=== PATIENT | female | born 1935 | race Caucasian/White ===

== ENCOUNTER 2018-04-08 01:17 | Outpatient (CLI) | payer MEDICARE, MEDICAID, SELFPAY ==
--- NOTE | 2018-04-08 10:40 | DI.RAD_ITS ---
SYMPTOMS/DIAGNOSIS: RIGHT HIP PAIN, M25.551, H/O TRAUMATIC HIP FX, Z87.81 PELVIS AND RIGHT HIP: Comparison is made with intraoperative images dated August,. A compression screw is again noted in the proximal right femur for fracture fixation. There has been interval healing of the intertrochanteric fracture. A portion of the fracture remains visible.
== END 2018-04-08 01:37 ==
PROVIDERS: PCP Family Medicine; Visit Provider Nurse Practitioner Family
DX: M25.551 Pain in right hip (principal); Z87.81 Personal history of (healed) traumatic fracture
CPT/HCPCS: 73502

== ENCOUNTER → 2018-04-09 10:30 | Outpatient (BNVA) | payer MEDICARE, MEDICAID, SELFPAY | PROVIDERS: PCP Family Medicine; Referring Provider Family Medicine; Visit Provider Orthopaedic Surgery | DX: S72.141D Displaced intertrochanteric fracture of right femur, subsequent encounter for closed fracture with routine healing (principal); W19.XXXD Unspecified fall, subsequent encounter; M70.61 Trochanteric bursitis, right hip | CPT/HCPCS: 20610; 99211; 99213; J1040 ==

== ENCOUNTER → 2018-05-21 13:58 | Outpatient (BNVA) | payer MEDICARE, MEDICAID, SELFPAY | PROVIDERS: PCP Family Medicine; Referring Provider Family Medicine; Visit Provider Orthopaedic Surgery | DX: M70.61 Trochanteric bursitis, right hip (principal); M25.561 Pain in right knee; Z87.81 Personal history of (healed) traumatic fracture | CPT/HCPCS: 20610; 99211; 99213; J1040 ==

== ENCOUNTER → 2018-07-02 13:40 | Outpatient (BNVA) | payer MEDICARE, MEDICAID, SELFPAY | PROVIDERS: PCP Family Medicine; Referring Provider Family Medicine; Visit Provider Orthopaedic Surgery | DX: M70.61 Trochanteric bursitis, right hip (principal) | CPT/HCPCS: 99211; 99213 ==

== ENCOUNTER → 2018-08-18 10:43 | Outpatient (BNVA) | payer MEDICARE, MEDICAID, SELFPAY | PROVIDERS: PCP Family Medicine; Visit Provider Nurse Practitioner Family | DX: I44.2 Atrioventricular block, complete (principal); I10 Essential (primary) hypertension; E11.9 Type 2 diabetes mellitus without complications; Z79.84 Long term (current) use of oral hypoglycemic drugs; Z45.010 Encounter for checking and testing of cardiac pacemaker pulse generator [battery] | CPT/HCPCS: 93280; 99213 ==

== ENCOUNTER 2019-01-14 18:19 | Outpatient (REF) | payer MEDICARE, MEDICAID, SELFPAY ==
[2019-01-14 18:38] LABS: Anion Gap 13.3 mmol/L (3-11); BUN 17 mg/dL (7-18); CO2 22.7 mmol/L (21.0-32.0); CREATININE 0.86 mg/dL (0.55-1.02); Calcium 9.5 mg/dL (8.5-10.1); Chloride 99 mmol/L (98-107); Glucose 196 mg/dL (70-100); Potassium 4.4 mmol/L (3.5-5.1); Sodium 135 mmol/L (136-145)
== END 2019-01-14 18:39 ==
LOC: NCHCN 18:19
PROVIDERS: PCP Family Medicine; Visit Provider Nurse Practitioner Family
DX: E11.9 Type 2 diabetes mellitus without complications (principal)
CPT/HCPCS: 80048

== ENCOUNTER → 2019-02-16 11:38 | Outpatient (BNVA) | payer MEDICARE, MEDICAID, SELFPAY | PROVIDERS: PCP Family Medicine; Visit Provider Nurse Practitioner Family | DX: I44.2 Atrioventricular block, complete (principal); I10 Essential (primary) hypertension; Z45.018 Encounter for adjustment and management of other part of cardiac pacemaker; E11.9 Type 2 diabetes mellitus without complications; Z79.84 Long term (current) use of oral hypoglycemic drugs | CPT/HCPCS: 93288; 99213 ==

== ENCOUNTER → 2019-08-18 09:29 | Outpatient (BNVA) | payer MEDICARE, MEDICAID, SELFPAY | PROVIDERS: PCP Family Medicine; Referring Provider Family Medicine; Visit Provider Internal Medicine Cardiovascular Disease | DX: I44.2 Atrioventricular block, complete (principal); I10 Essential (primary) hypertension; E11.9 Type 2 diabetes mellitus without complications; Z45.018 Encounter for adjustment and management of other part of cardiac pacemaker | CPT/HCPCS: 93279; 93280; 99212; 99213 ==

== ENCOUNTER 2019-10-25 06:30 | Outpatient (REF) | payer MEDICARE, MEDICAID, SELFPAY ==
[2019-10-25 08:57] LABS: Hemoglobin A1C 7.3 % (3.8-5.6)
== END 2019-10-25 06:50 ==
LOC: NCHCN 06:30
PROVIDERS: PCP Family Medicine; Visit Provider Nurse Practitioner Family
DX: E11.9 Type 2 diabetes mellitus without complications (principal)
CPT/HCPCS: 83036

== ENCOUNTER 2020-07-24 20:35 | Outpatient (REF) | payer MEDICARE, MEDICAID, SELFPAY ==
[2020-07-24 12:20] LABS: ALT 23 U/L (14-59); AST 15 U/L (15-37); Albumin 3.5 g/dL (3.4-5.0); Alkaline Phosphatase 103 U/L (46-116); Anion Gap 7.2 mmol/L (3-11); BUN 19 mg/dL (7-18); Bilirubin, Total 0.3 mg/dL (0.2-1.0); CO2 27.8 mmol/L (21.0-32.0); CREATININE 0.8 mg/dL (0.55-1.02); Calcium 9.2 mg/dL (8.5-10.1); Chloride 102 mmol/L (98-107); Glucose 164 mg/dL (74-106); Potassium 4.8 mmol/L (3.5-5.1); Sodium 137 mmol/L (136-145); Total Protein 6.7 g/dL (6.4-8.2)
[2020-07-24 12:25] LABS: Hemoglobin A1C 7.4 % (<5.7)
== END 2020-07-24 20:36 | disposition home or self-care (01) ==
LOC: NCHCN 20:35
PROVIDERS: PCP Family Medicine; Visit Provider Nurse Practitioner Family
DX: E11.9 Type 2 diabetes mellitus without complications (principal); I10 Essential (primary) hypertension; F43.21 Adjustment disorder with depressed mood; Z95.0 Presence of cardiac pacemaker
CPT/HCPCS: 80053; 83036

== ENCOUNTER 2020-08-20 13:18 | Emergency (ER) | payer MEDICARE, MEDICAID, SELFPAY ==
[2020-08-20] VITALS (21 sets, daily range): BP systolic 105–154; BP diastolic 47–71; PULSE 92–102; RESP 14–20; TEMP 36.1; O2SAT 91–96
--- NOTE | 2020-08-20 13:30 | DI.RAD_ITS ---
EXAM: XR CHEST 1V IN DI DEPT CLINICAL HISTORY: fall TECHNIQUE: 2D digital imaging was performed. COMPARISON: CR CHEST 2 VIEWS PA,LAT from 08/19/2017 FINDINGS: MEDIASTINUM: Normal. HEART: Normal. Cardiac pacing wires are stable in position. PULMONARY VASCULATURE: There is fullness of the hilum bilaterally suspicious for pulmonary venous con gestion. This is most marked on the right. Adenopathy or mass cannot be entirely excluded. LUNGS: Clear. PLEURAL SPACE: No pleural effusion or pneumothorax. BONE:Within normal limits for the patient's age. OTHER FINDINGS:Normal. IMPRESSION: 1. Fullness of the flash bilaterally. This may represent pulmonary venous congestion. Adenopathy or mass cannot be entirely excluded. Please correlate clinically. 2. No focal consolidating infiltrates. DATA REPOSITORY: RADIATION DOSE DELIVERED:
--- NOTE | 2020-08-20 13:30 | RT.EKG_ITS ---
APPROVED REPORT Exam: Resting ECG Patient Location: E HR:96 bpm ECG Measurements Heart Rate 96 AXIS OK 212 P 95 QRSd 147 QRS 37 QT 397 T 229 QTc 501 Conclusion Sinus rhythm...normal P axis, V-rate 60- 99 Borderline prolonged OK interval...OK >207, V-rate 91-120 Left bundle branch block...QRSd>120, broad/notched R ST elevation secondary to IVCD...Multiple VCG criteria
--- NOTE | 2020-08-20 13:30 | DI.RAD_ITS ---
EXAM: XR HIP RT COMPLETE AP PELVIS and XR femur RT CLINICAL HISTORY: pain s/p fall. TECHNIQUE: 2D digital imaging was performed. COMPARISON: CR XR hip RT complete AP pelvis from 04/08/2018 FINDINGS: BONES: Acute fractures involving the right superior and inferior pubic rami. There is again seen a d ynamic compression screw transfixing the comminuted intertrochanteric fracture of the right femur. 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 The orthopedic hardware appears intact. No bony destructive lesion is seen. There is osteopenia. JOINTS: No dislocation present. SOFT TISSUE: Vascular calcifications are present. IMPRESSION: 1. Acute nondisplaced fractures of the right superior and inferior pubic rami. 2. Old right intertrochanteric femoral fracture with internal fixation and possible partial nonunion. DATA REPOSITORY: RADIATION DOSE DELIVERED:
--- NOTE | 2020-08-20 13:42 | ED.GENADUL_ITS ---
Discharge Plan Disposition Patient Disposition: OTHER Condition: Stable Discharge Details Clinical Impression: Fracture of ramus of right pubis Primary Care Provider: Sia Sousa ED Provider: Marvin Singer Home Meds and New Rx's Prescriptions: New tramadol 50 mg tablet 50 mg PO TID PRNQty: 14 RF: 0 Continued Tradjenta 5 mg tablet 5 mg PO QAM RF: 0 lisinopril 40 MG tablet 40 mg PO DAILY RF: 0 polyethylene glycol 3350 17 GM powder in packet 17 gm PO DAILY PRN PRN (Reason: Constipation) RF: 0 magnesium oxide 400 MG tablet 400 mg PO BID RF: 0 diazepam 2 MG tablet 2 mg PO TID PRN PRNQty: 12 RF: 0 pantoprazole 40 MG tablet,delayed release (DR/EC) 40 mg PO DAILY RF: 0 ibuprofen 400 MG tablet 400 - 800 mg PO Q6H PRN PRNRF: 0 acetaminophen [Tylenol] 325 MG tablet 650 tab PO Q6H PRN PRNQty: 0 RF: 0 aspirin [Lo-Dose Aspirin] 81 MG tablet,delayed release (DR/EC) 81 mg PO BID Qty: 0 RF: 0 spironolactone 25 MG tablet 12.5 mg PO DAILY RF: 0 glimepiride [Amaryl] 4 MG tablet 4 mg PO DAILY RF: 0 metformin 500 MG tablet 500 mg PO BID RF: 0 sertraline 100 mg tablet 100 mg PO DAILY RF: 0 Lantus Solostar U-100 Insulin 100 unit/mL (3 mL) insulin pen 15 unit SUBCUT HS RF: 0 Discharge Instructions Additional Instructions: you have a small broken bone in the pelvis that doesn't require any operations take tylenol 1000mg every 6 hours as needed and if you need additional pain med icine take 1 tramadol follow up with your primary care provider within 1 week if severe worsening pain, or new pain such as abdominal pain return to the emergency department Medical Decision Making 84 yo female with hx of dm, htn, who had a right hip fracture previously in the past comes in from hospital for special care with right hip pain. She states that yesterday evening she was using her walker and it got caught and she fell onto the right hip. Denies hitting head or loc. She states she was able to use her walker after this but states unable to use her walker due to right hip pain today. She arrives hemodynamically stable. Denies head pain and has no neck tenderness, no abdominal tenderness or chest tenderness. She has pain over right lateral hip, no rotation on exam and no distal pain. She is unable to move the right leg due to pain in the right hip, no erythema or warmth. No pain in the knee. Suspect contusion vs fracture, will obtain xrays and reassess. labs show no significant acute findings, xrays show nondisplaced fractures of right superior and inferior pubic rami, nonsurgical per Dr. Mccauley. Discussed with annie suarez treatment plan of prn analgesia and weight bearing as tolerated and they feel they can provide this for her and are agreeable to take her back. Pt updated and in agreement with plan. Cxr read as mild congestion but has no signs on exam to suggest clinical failure at this time and has clear lungs and no hypoxia, no dyspnea or chest pain so do not feel treatment for this indicated Differential Diagnosis Differential Diagnosis: bursitis, contusion, fracture Medical Records Medical records reviewed: Yes I reviewed the patient's medical records. Imaging Data Radiologic Study: Attestation: I personally reviewed and interpreted this imaging study as follows: Imaging: X-Ray Radiologist's impression: IMPRESSION: Mild vascular congestion on chest xray Radiologic Study #2: Attestation: I personally reviewed and interpreted this imaging study as follows: Imaging: X-Ray Radiologist's impression: IMPRESSION: 1. Nondisplaced acute appearing fractures of the right superior and inferior pubic rami. 2. 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 Radiologic Study #3: Attestation: I personally reviewed and interpreted this imaging study as follows: Imaging: X-Ray Radiologist's impression: IMPRESSION: 1. Nondisplaced acute appearing fractures of the right superior and inferior pubic rami. 2. 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 ECG Data Attestation: I personally reviewed and interpreted this ECG (s) as follows: Prior ECG tracings: available for review Interpretation: sinus rhythm, rate of 96, pr 212, left bundle branch block, no acute changes compared to prior ekg HPI General Mode of arrival: EMS . Date/Time Provider Initiated Documentation: 08/20/20 13:31 . Limitations to Documentation: no limitations . Information obtained by: patient . History of Present Illness 84 year old F presents to the emergency department with the chief complaint of right hip pain, described as moderate, Patient reports no radiation. Patient started experiencing this day(s) (1) and it has been constant. Movement worsens symptoms . Patient notes no other symptoms.. Patient did receive the following treatments prior to arrival, none Related Data Home Medications Medication Instructions Recorded Confirmed lisinopril 40 mg PO DAILY 03/04/16 08/20/20 glimepiride [Amaryl] 4 mg PO DAILY 08/12/16 08/20/20 spironolactone 12.5 mg PO DAILY 08/12/16 08/20/20 metformin 500 mg PO BID 07/10/17 08/20/20 acetaminophen [Tylenol] 650 tab PO Q6H PRN PRN #0 08/22/17 08/20/20 aspirin [Lo-Dose Aspirin] 81 mg PO BID #0 08/22/17 08/20/20 diazepam 2 mg PO TID PRN PRN #12 tab 08/22/17 08/20/20 ibuprofen 400 - 800 mg PO Q6H PRN PRN tab 08/22/17 08/20/20 magnesium oxide 400 mg PO BID tab 08/22/17 08/20/20 pantoprazole 40 mg PO DAILY tabcr 08/22/17 08/20/20 polyethylene glycol 3350 17 gm PO DAILY PRN PRN packet 08/22/17 08/20/20 linagliptin 5 mg tablet 5 mg PO QAM 02/16/19 08/20/20 Lantus Solostar U-100 Insulin 15 unit SUBCUT HS 08/20/20 08/20/20 sertraline 100 mg PO DAILY 08/20/20 08/20/20 tramadol 50 mg PO TID PRN #14 tab 08/20/20 Previous Rx's Medication Instructions Recorded acetaminophen [Tylenol] 650 tab PO Q6H PRN PRN #0 08/22/17 aspirin [Lo-Dose Aspirin] 81 mg PO BID #0 08/22/17 diazepam 2 mg PO TID PRN PRN #12 tab 08/22/17 ibuprofen 400 - 800 mg PO Q6H PRN PRN tab 08/22/17 magnesium oxide 400 mg PO BID tab 08/22/17 pantoprazole 40 mg PO DAILY tabcr 08/22/17 polyethylene glycol 3350 17 gm PO DAILY PRN PRN packet 08/22/17 tramadol 50 mg PO TID PRN #14 tab 08/20/20 Allergies Allergy/AdvReac Type Severity Reaction Status Date / Time chlorpheniramine polistirex Allergy Unverified 08/20/20 13:32 [From Tussionex] codeine Allergy Unverified 08/20/20 13:32 hydrocodone polistirex Allergy Unverified 08/20/20 13:32 [From Tussionex] meperidine HCl [From Demerol] Allergy Unverified 08/20/20 13:32 Penicillins Allergy Unverified 08/20/20 13:32 scallops Allergy Unverified 08/20/20 13:32 shellfish derived Allergy Unverified 08/20/20 13:32 Sulfa (Sulfonamide Allergy Unverified 08/20/20 13:32 Antibiotics) General Stated Complaint: Orthopedic ALCIDES: 3 Review of Systems All systems reviewed & are unremarkable except as noted in HPI and below Constitutional Constitutional: Denies chills, Denies fever(s) and Denies weakness Cardiovascular Cardiovascular: Denies chest pain and Denies dyspnea Respiratory Respiratory: Denies cough and Denies dyspnea Gastrointestinal Gastrointestinal: Denies abdominal pain, Denies nausea and Denies vomiting Musculoskeletal Musculoskeletal: Denies joint swelling Neurologic Neurologic: Denies weakness Psychiatric Psychiatric: Denies depression [facility] Medical History (Updated 08/20/20 @ 15:21 by Marvin Singer MD) Complete heart block Diabetes mellitus Hypertension Surgical History (Updated 09/02/17 @ 08:26 by Vaishali Collins) OPEN REDUCTION AND INTERNAL FIXATION WITH COMPRESSION HIP SCREW (08/19/17) DR. GARCIA Social History Smoking/Tobacco Use Status: Former Tobacco Use Smoking risk assessment performed?: Yes Alcohol Intake: never Drug use: Never Do you feel safe in your relationship?: Yes Exam Const General: no acute distress Orientation: alert HENMT Head: normal to inspection Ears: external ears normal General nose exam: external nose normal Mouth: moist mucous membranes Eyes General: appearance normal, both eyes and all related structures Neck Neck: normal visual inspection Resp Effort & Inspection: normal respiratory effort and able to speak in complete sentences Cardio Rate: regular rate Skin General skin exam: no rashes or lesions noted Neuro General: patient alert Extrem General: normal to inspection Course Vital Signs Vital signs: Vital Signs Temperature 36.1 C L 08/20/20 13:27 Pulse 100 H 08/20/20 13:27 Respiratory Rate 20 08/20/20 13:27 Blood Pressure 154/61 H 08/20/20 13:27 Pulse Oximetry 92 08/20/20 13:27 Temperature 36.1 C L 08/20/20 13:27 Temperature Source Temporal Artery Scan 08/20/20 13:27 Pulse 100 H 08/20/20 13:27 Respiratory Rate 20 08/20/20 13:27 Respiratory Effort Non-Labored 08/20/20 13:30 Blood Pressure 154/61 H 08/20/20 13:27 Blood Pressure Position Supine 08/20/20 13:27 Pulse Oximetry 92 08/20/20 13:27 Oxygen Delivery Method Room Air 08/20/20 13:27 Oxygen Flow Rate 0 08/20/20 13:27 Pain Level 10 08/20/20 13:27
[2020-08-20] MEDS: Acetaminophen 500 MG TAB 1000 MG PO (13:50)
[2020-08-20 13:58] LABS: Abs Immature Grans 0.05 10^3/uL (0.0-0.06); Absolute Basophil Count 0.06 10^3/uL (0.0-0.2); Absolute Eosinophil Count 0.13 10^3/uL (0.0-0.7); Absolute Lymphocyte Count 1.62 10^3/uL (1.2-3.4); Absolute Monocyte Count 0.58 10^3/uL (0.1-0.8); Basophils % 0.6; Eosinophils % 1.3; HCT 38.6 % (36.0-46.0); HGB 12.7 g/dL (11.2-15.7); Immature Grans % 0.5; Lymphocytes % 16.3; MCH 28.9 pg (27.0-33.0); MCHC 32.9 % (32.0-36.0); MCV 87.9 fL (80-95); MPV 8.8 fL (8.0-11.0); Monocytes % 5.8; Neutrophils % 75.5; Nucleated RBC 0 %; Platelet Count 277 10^3/uL (130-400); RBC 4.39 10^6/uL (3.93-5.22); RDW 13.6 % (11.7-14.6); RDW-SD 43.9 fL; WBC 9.94 10^3/uL (4.4-10.8)
[2020-08-20 14:13] LABS: INR 1.1 (0.9-1.1); PTT Activated 24.8 sec (21.0-27.5)
[2020-08-20 14:21] LABS: ALT 39 U/L (14-59); AST 30 U/L (15-37); Albumin 3.7 g/dL (3.4-5.0); Alkaline Phosphatase 102 U/L (46-116); Anion Gap 13.1 mmol/L (3-11); BUN 24 mg/dL (7-18); Bilirubin, Total 0.6 mg/dL (0.2-1.0); CO2 22.9 mmol/L (21.0-32.0); CREATININE 1.2 mg/dL (0.55-1.02); Calcium 9.3 mg/dL (8.5-10.1); Chloride 100 mmol/L (98-107); Glucose 229 mg/dL (74-106); Potassium 4.2 mmol/L (3.5-5.1); Sodium 136 mmol/L (136-145); Total Protein 7.4 g/dL (6.4-8.2)
[2020-08-20 14:31] LABS: Troponin I < 0.05 ng/mL (<0.06)
--- NOTE | 2020-08-20 14:38 | DI.VRAD_ITS ---
PROCEDURE INFORMATION: Exam: XR Chest Exam date and time: 08/20/2020 2:28 PM Age: 84 years old Clinical indication: Chest pain; Patient HX: Fall TECHNIQUE: Imaging protocol: XR of the chest Views: 1 view. COMPARISON: CR CHEST 2 VIEWS PA,LAT 08/19/2017 9:06 AM FINDINGS: Tubes, catheters and devices: Pacemaker. Lungs: Mild vascular congestion. No consolidation. Pleural spaces: Unremarkable. No pleural effusion. No pneumothorax. Heart/Mediastinum: Normal Vasculature: Aortic calcifications. Bones/joints: Degenerate arthritis spine and shoulders. IMPRESSION: Mild vascular congestion Dictated and Authenticated by: Christina Zavala MD. Ordering:JAROD Wong MD
--- NOTE | 2020-08-20 14:42 | DI.VRAD_ITS ---
PROCEDURE INFORMATION: Exam: XR Right Hip with Pelvis when Performed Exam date and time: 08/20/2020 2:29 PM Age: 84 years old Clinical indication: Injury or trauma; Fall; Fracture of pelvis \T\ hip; Right; Traumatic fracture; Articular head of femur; Closed fracture TECHNIQUE: Imaging protocol: XR Right hip with pelvis when performed. Views: 2 or 3 views. COMPARISON: CR XR hip RT complete AP pelvis 04/08/2018 10:28 AM FINDINGS: Bones/joints: Nondisplaced acute appearing fractures of the right superior and inferior pubic rami. Internal fixation proximal right femur across the trochanteric fracture. Fracture line remains visible and has appearance more suggestive of a chronic nonunion or partial nonunion rather than an acute fracture. The bones are demineralized and there is degenerative arthritis in the visualized lower lumbar spine. Degenerative narrowing of both hip joints, worse on the right. Subcutaneous edema over the lateral aspect of the right hip. Soft tissues: Unremarkable. Vasculature: Vascular calcifications. IMPRESSION: 1. Nondisplaced acute appearing fractures of the right superior and inferior pubic rami. 2. 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 Dictated and Authenticated by: Christina Zavala MD. Ordering:JAROD Wong MD
--- NOTE | 2020-08-20 14:43 | DI.VRAD_ITS ---
PROCEDURE INFORMATION: Exam: XR Right Femur Exam date and time: 08/20/2020 2:28 PM Age: 84 years old Clinical indication: Injury or trauma; Fall; Fracture, traumatic; Closed fracture; Hip; Right; Prior surgery TECHNIQUE: Imaging protocol: XR Right femur. Views: 2 views. COMPARISON: No relevant prior studies available. FINDINGS: Bones/joints: Nondisplaced acute appearing fractures of the right superior and inferior pubic rami. Internal fixation proximal right femur across the trochanteric fracture. Fracture line remains visible and has appearance more suggestive of a chronic nonunion or partial nonunion rather than an acute fracture. Degenerative arthritis right hip with diffuse joint space narrowing. Degenerate arthritis right knee. The bones are demineralized. Soft tissues: Mild soft tissue edema lateral to the right hip. Vasculature: Vascular calcifications. IMPRESSION: 1. Nondisplaced acute appearing fractures of the right superior and inferior pubic rami. 2. 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 Dictated and Authenticated by: Christina Zavala MD. Ordering:JAROD Wong MD
== END 2020-08-20 15:48 | disposition other institution (70) ==
LOC: ER 15:22
PROVIDERS: Emergency Provider Emergency Medicine; PCP Nurse Practitioner Family
DX: S32.591A Other specified fracture of right pubis, initial encounter for closed fracture (principal); S32.511A Fracture of superior rim of right pubis, initial encounter for closed fracture; W18.09XA Striking against other object with subsequent fall, initial encounter
CPT/HCPCS: 36415; 73552; 80053; 86850; 86900; 86901; 93005; 99285; 71045; 73502; 84484; 85025; 85610; 85730; 93010

== ENCOUNTER 2020-08-23 11:44 | Inpatient (IN) | payer MEDICARE, MEDICAID, SELFPAY ==
[2020-08-23] VITALS (12 sets, daily range): BP systolic 114–162; BP diastolic 62–88; PULSE 74–107; RESP 16–18; TEMP 36.6–36.7; O2SAT 92–97
--- NOTE | 2020-08-23 11:39 | W.ED.GENAD ---
Discharge Plan Disposition Patient Disposition: [facility] INPATIENT Condition: Stable Discharge Details Clinical Impression: Intractable pain, Fracture of superior pubic ramus, Fracture of inferior pubic ramus, Ambulatory dysfunction Admit Date/Time: 08/23/20 12:31 Admit Provider: Juan Bro Attending Provider: Juan Bro Primary Care Provider: Criss Clay ED Provider: Ingrid Sun Discharge Data Discharge Date/Time-TO BE ENTERED AT DEPARTURE: 08/23/20 13:52 Medical Decision Making 84-year-old female with a history of complete heart block, hypertension, diabetes history of previous right hip fracture and diagnosed 3 days ago with right superior inferior pubic ramus fracture status post fall presents from [facility] for intractable pain and inability to ambulate for admission for pain control. Report per EMS was that it was attempted for patient to be directly admitted but they were unable to do so. Patient denies any new falls. She is afebrile and appears nontoxic. Unclear if patient has any history of dementia or is hard of hearing but has delayed answers. She is oriented to person and place but not time. She has pain in her right hip with any movement. She has neurovascular intact. We will place an IV, check screening labs and urinalysis and give a dose of morphine for pain control. Labs reviewed. Normal white blood cell count. Glucose 236. Bicarb 23. Urinalysis notes 3-5 WBCs but negative nitrite. Rapid Covid negative. Case discussed with hospitalist who accepts patient for admission for pain control, PT evaluation and if needed transfer to rehab for pain management and PT. Medical Records Medical records reviewed: Yes I reviewed the patient's medical records. Lab Data Lab results reviewed: Yes I reviewed the patient's lab results. Labs: 08/23/20 12:20 Urine - Reflex from Ua Urine Culture - Pending Laboratory Tests Range/Units 08/23/20 08/23/20 08/23/20 11:58 11:58 12:20 WBC (4.4-10.8) 10^3/uL 9.24 RBC (3.93-5.22) 10^6/uL 4.15 Hgb (11.2-15.7) g/dL 11.7 Hct (36.0-46.0) % 36.1 MCV (80-95) fL 87.0 MCH (27.0-33.0) pg 28.2 MCHC (32.0-36.0) % 32.4 RDW (11.7-14.6) % 13.5 Plt Count (130-400) 10^3/uL 255 MPV (8.0-11.0) fL 8.9 Immature Gran % 0.5 Neutrophils % 72.0 Lymphocytes % 18.2 Monocytes % 7.1 Eosinophils % 1.8 Basophils % 0.4 Nucleated RBC % % 0 Absolute Neutrophils (1.2-6.7) 10^3/uL 6.64 Absolute Lymphocytes (1.2-3.4) 10^3/uL 1.68 Absolute Monocytes (0.1-0.8) 10^3/uL 0.66 Absolute Eosinophils (0.0-0.7) 10^3/uL 0.17 Absolute Basophils (0.0-0.2) 10^3/uL 0.04 Sodium (136-145) mmol/L 134 L Potassium (3.5-5.1) mmol/L 4.3 Chloride (98-107) mmol/L 97 L Carbon Dioxide (21.0-32.0) mmol/L 23.4 Anion Gap (3-11) mmol/L 13.6 H BUN (7-18) mg/dL 32 H Creatinine (0.55-1.02) mg/dL 1.1 H Estimated GFR/1.73 m2 (mL/min/1.73m2) 47.32 Glucose (74-106) mg/dL 236 H Calcium (8.5-10.1) mg/dL 9.2 Total Bilirubin (0.2-1.0) mg/dL 0.7 AST (15-37) U/L 26 ALT (14-59) U/L 27 Alkaline Phosphatase (46-116) U/L 90 Total Protein (6.4-8.2) g/dL 7.4 Albumin (3.4-5.0) g/dL 3.4 Urine Color (Yellow) Yellow Urine Clarity (Clear) Sl cloudy Urine pH (5-8) 5.5 Ur Specific [place] (1.005-1.025) 1.025 Urine Protein (Negative) mg/dL 30 H Urine Ketones (Negative) mg/dL 40 H Urine Blood (Negative) Small H Urine Nitrite (Negative) Negative Urine Bilirubin (Negative) Negative Urine Urobilinogen (Up TO 0.2) EU/dL 0.2 Ur Leukocyte Esterase (Negative) Trace H Urine RBC (0-2) HPF 5-10 H Urine WBC (0-5) HPF 3-5 Ur Epithelial Cells (Negative) HPF Rare Urine Crystals (Negative) HPF Negative Urine Bacteria (Negative) HPF Many Urine Casts (Negative) LPF Negative Urine Mucus (Negative) Negative Ur Culture Indicated? Yes Urine Glucose (Negative) mg/dL 500 H HPI General Mode of arrival: EMS. Date/Time Provider Initiated Documentation: 08/23/20 11:56. Limitations to Documentation: no limitations. Information obtained by: patient. HPI Narrative: Patient is an 84-year-old female with a history of hypertension, cataracts, diabetes and previous right hip fracture diagnosed with right superior and inferior pubic ramus fractures 3 days ago status post fall at [facility]. Patient was seen in the ED at that time and discharged home with tramadol. EMS called to [facility] today as patient's pain is uncontrolled and she is unable to ambulate. Review of records from ED notes a few days ago note that [facility] thought they could manage her weightbearing as tolerated and pain control at that time but she has been unable to manage there. Patient states the tramadol is not helping for her pain. She states she has been unable to ambulate due to the pain. She denies any new falls. She denies any fever, vomiting. Related Data Home Medications Medication Instructions Recorded Confirmed lisinopril 40 mg PO HS 03/04/16 08/23/20 glimepiride [Amaryl] 4 mg PO DAILY 08/12/16 08/23/20 spironolactone 12.5 mg PO DAILY 08/12/16 08/23/20 metformin 500 mg PO BID 07/10/17 08/23/20 acetaminophen [Tylenol] 650 tab PO Q6H PRN PRN #0 08/22/17 08/23/20 aspirin [Lo-Dose Aspirin] 81 mg PO BID #0 08/22/17 08/23/20 diazepam 2 mg PO TID PRN PRN #12 tab 08/22/17 08/23/20 ibuprofen 400 - 800 mg PO Q6H PRN PRN tab 08/22/17 08/23/20 magnesium oxide 400 mg PO BID tab 08/22/17 08/23/20 pantoprazole 40 mg PO DAILY tabcr 08/22/17 08/23/20 polyethylene glycol 3350 17 gm PO DAILY PRN PRN packet 08/22/17 08/23/20 linagliptin 5 mg tablet 5 mg PO QAM 02/16/19 08/23/20 Lantus Solostar U-100 Insulin 15 unit SUBCUT HS 08/20/20 08/23/20 oxycodone 5 mg PO Q6H 08/23/20 08/23/20 Previous Rx's Medication Instructions Recorded acetaminophen [Tylenol] 650 tab PO Q6H PRN PRN #0 08/22/17 aspirin [Lo-Dose Aspirin] 81 mg PO BID #0 08/22/17 diazepam 2 mg PO TID PRN PRN #12 tab 08/22/17 ibuprofen 400 - 800 mg PO Q6H PRN PRN tab 08/22/17 magnesium oxide 400 mg PO BID tab 08/22/17 pantoprazole 40 mg PO DAILY tabcr 08/22/17 polyethylene glycol 3350 17 gm PO DAILY PRN PRN packet 08/22/17 Allergies Allergy/AdvReac Type Severity Reaction Status Date / Time chlorpheniramine polistirex Allergy Unverified 08/23/20 12:45 [From Tussionex] codeine Allergy Unverified 08/23/20 12:45 hydrocodone polistirex Allergy Unverified 08/23/20 12:45 [From Tussionex] meperidine HCl [From Demerol] Allergy Unverified 08/23/20 12:45 Penicillins Allergy Unverified 08/23/20 12:45 scallops Allergy Unverified 08/23/20 12:45 shellfish derived Allergy Unverified 08/23/20 12:45 Sulfa (Sulfonamide Allergy Unverified 08/23/20 12:45 Antibiotics) General Stated Complaint: Orthopedic ALCIDES: 3 Review of Systems All systems reviewed & are unremarkable except as noted in HPI and below Constitutional Constitutional: Reports as per HPI, Denies chills and Denies fever(s) Eyes Eyes: Denies blurry vision ENT Ears, Nose, Mouth, and Throat: Denies dizziness, Denies sore throat and Denies throat swelling Cardiovascular Cardiovascular: Denies chest pain and Denies dyspnea Respiratory Respiratory: Denies cough and Denies dyspnea Gastrointestinal Gastrointestinal: Denies abdominal pain, Denies diarrhea and Denies vomiting Genitourinary Genitourinary: Denies hematuria and Denies dysuria Musculoskeletal Musculoskeletal: Denies back pain and Denies numbness Comments: Right hip pain Integumentary/Breasts Skin/Breast: Denies lesions and Denies rash Neurologic Neurologic: Denies dizziness, Denies localized weakness and Denies numbness Allergic/Immunologic Allergic/Immunologic: Denies throat swelling [facility] Medical History (Updated 08/24/20 @ 08:14 by Ingrid Sun DO) Complete heart block Diabetes mellitus Hypertension Surgical History (Updated 09/02/17 @ 08:26 by Vaishali Collins) OPEN REDUCTION AND INTERNAL FIXATION WITH COMPRESSION HIP SCREW (08/19/17) DR. GARCIA Social History Smoking/Tobacco Use Status: Former Tobacco Use Smoking risk assessment performed?: Yes Alcohol Intake: never Drug use: Never Exam Const General: cooperative and no acute distress HENMT Head: normal to inspection Face and sinus: normal facial exam Eyes General: appearance normal, both eyes and all related structures EOM: EOM intact bilaterally Neck Neck: normal visual inspection and No submandibular swelling Lymphatic: no lymphadenopathy noted Chest Chest: normal inspection of the chest and no tenderness Resp Effort & Inspection: normal respiratory effort and able to speak in complete sentences Auscultation: clear to auscultation bilaterally Cardio Rate: regular rate Rhythm: regular rhythm GI Inspection: normal to inspection Palpation: soft, not firm, not rigid and nontender Auscultation: normal bowel sounds Back/Spine/Pelvis Thoracic/Lumbar Spine: thoracic and lumbar spine normal to inspection Other: Pain in right hip with range of motion. Tenderness to palpation to right lateral hip. Skin General skin exam: no rashes or lesions noted Neuro General: patient alert, patient awake and patient oriented x3 Cognition: normal cognition Speech: speech normal Motor: muscle tone normal throughout Sensory Exam: no sensory deficits noted Extrem General: normal to inspection, capillary refill normal, no calf tenderness bilaterally and no edema Other: Tenderness palpation to right lateral hip. Pain in right hip with range of motion. Right DP/PT pulses intact. Psych Appearance: grossly normal Mental Status: mental status grossly normal Speech and Movement: speech and movement normal Affect: normal affect Course Vital Signs Vital signs: Vital Signs Temperature 97.9 F 08/23/20 11:37 Pulse 107 H 08/23/20 11:37 Respiratory Rate 18 08/23/20 11:37 Blood Pressure 136/85 08/23/20 11:37 Pulse Oximetry 97 08/23/20 11:37 Temperature 97.9 F 08/23/20 11:37 Temperature Source Skin 08/23/20 11:37 Pulse 107 H 08/23/20 11:37 Respiratory Rate 18 08/23/20 11:37 Blood Pressure 136/85 08/23/20 11:37 Blood Pressure Position Supine 08/23/20 11:37 Pulse Oximetry 97 08/23/20 11:37 Oxygen Delivery Method Room Air 08/23/20 11:37 Oxygen Flow Rate 0 08/23/20 11:37 Pain Level 10 08/23/20 11:37
[2020-08-23 12:19] LABS: Abs Immature Grans 0.05 10^3/uL (0.0-0.06); Absolute Basophil Count 0.04 10^3/uL (0.0-0.2); Absolute Eosinophil Count 0.17 10^3/uL (0.0-0.7); Absolute Lymphocyte Count 1.68 10^3/uL (1.2-3.4); Absolute Monocyte Count 0.66 10^3/uL (0.1-0.8); Absolute Neutrophil Count 6.64 10^3/uL (1.2-6.7); Basophils % 0.4; Eosinophils % 1.8; HCT 36.1 % (36.0-46.0); HGB 11.7 g/dL (11.2-15.7); Immature Grans % 0.5; Lymphocytes % 18.2; MCH 28.2 pg (27.0-33.0); MCHC 32.4 % (32.0-36.0); MPV 8.9 fL (8.0-11.0); Monocytes % 7.1; Nucleated RBC 0 %; Platelet Count 255 10^3/uL (130-400); RBC 4.15 10^6/uL (3.93-5.22); RDW 13.5 % (11.7-14.6); RDW-SD 43.6 fL; WBC 9.24 10^3/uL (4.4-10.8)
[2020-08-23 12:25] LABS: Bilirubin Negative (Negative); Blood Small (Negative); Clarity Sl Cloudy (Clear); Glucose 500 mg/dL (Negative); Ketones 40 mg/dL (Negative); Leukocyte Esterase Trace (Negative); Nitrite Negative (Negative); Specific Gravity 1.025 (1.005-1.025); Urobilinogen 0.2 EU/dL (Up TO 0.2); pH 5.5 (5-8)
[2020-08-23 12:32] LABS: ALT 27 U/L (14-59); AST 26 U/L (15-37); Albumin 3.4 g/dL (3.4-5.0); Alkaline Phosphatase 90 U/L (46-116); Anion Gap 13.6 mmol/L (3-11); BUN 32 mg/dL (7-18); Bilirubin, Total 0.7 mg/dL (0.2-1.0); CO2 23.4 mmol/L (21.0-32.0); CREATININE 1.1 mg/dL (0.55-1.02); Calcium 9.2 mg/dL (8.5-10.1); Chloride 97 mmol/L (98-107); Estimated GFR 47.32 (mL/min/1.73m2); Glucose 236 mg/dL (74-106); Potassium 4.3 mmol/L (3.5-5.1); Sodium 134 mmol/L (136-145); Total Protein 7.4 g/dL (6.4-8.2)
[2020-08-23 12:32] LABS: Epithelial Cells Rare HPF (Negative)
[2020-08-23 12:33] LABS: Bacteria Many HPF (Negative); C & S Indicated? Yes; Casts Negative LPF (Negative); Crystals Negative HPF (Negative); Mucus Negative (Negative)
--- NOTE | 2020-08-23 12:34 | W.PM.HP.N ---
Date of service: 08/23/20 Time of Service: 12:34 Assessment and Plan Assessment and plan (1) Fracture of ramus of right pubis: Status: Acute Assessment and plan: seen by orthopedics on Friday. non surgical weight bear as tolerated pain management/bowel management PT/OT consult walker at all times for gait safety and stability (2) Diabetes mellitus type 2 in obese: Status: Acute Assessment and plan: diabetic diet sliding scale ac/hs continue home medication, trajenta not available A1C 7.4 in jul 2020 (3) DVT prophylaxis: Status: Acute Assessment and plan: enoxaparin daily (4) Discharge planning issues: Status: Acute Assessment and plan: case management following anticipate swing level needs to safely reambulate. discussed with Dr Bro History of Present Illness History of Present Illness Chief Complaint: right hip pain Narrative: patient returns to the ED after a mechanical fall on 08/20/20 where she was evaluated in ED and labs show no significant acute findings, xrays show nondisplaced fractures of right superior and inferior pubic rami, seen and noted to be nonsurgical per Dr. Mccauley. She was discharged back with orders to ambulation with assist and walker, pain management and has failed to manage pain and ambulation so returns to the ED. Review of Systems Constitutional Constitutional: Denies fever(s) Musculoskeletal Musculoskeletal: Reports arthralgias (right hip) Integumentary/Breasts Skin/Breast: Denies lesions and Denies rash [facility] Medical History (Updated 08/24/20 @ 08:59 by Janice Castillo NP) Complete heart block Diabetes mellitus Hypertension Surgical History (Updated 09/02/17 @ 08:26 by Vaishali Collins) OPEN REDUCTION AND INTERNAL FIXATION WITH COMPRESSION HIP SCREW (08/19/17) DR. GARCIA Social History Smoking/Tobacco Use Status: Former Tobacco Use Smoking risk assessment performed?: Yes Alcohol Intake: never Drug use: Never Meds Home Medications and Allergies Allergies Allergy/AdvReac Type Severity Reaction Status Date / Time chlorpheniramine polistirex Allergy Unverified 08/23/20 12:45 [From Tussionex] codeine Allergy Unverified 08/23/20 12:45 hydrocodone polistirex Allergy Unverified 08/23/20 12:45 [From Tussionex] meperidine HCl [From Demerol] Allergy Unverified 08/23/20 12:45 Penicillins Allergy Unverified 08/23/20 12:45 scallops Allergy Unverified 08/23/20 12:45 shellfish derived Allergy Unverified 08/23/20 12:45 Sulfa (Sulfonamide Allergy Unverified 08/23/20 12:45 Antibiotics) Home Medications Medication Instructions Recorded Confirmed Type lisinopril 40 mg PO HS 03/04/16 08/23/20 History glimepiride [Amaryl] 4 mg PO DAILY 08/12/16 08/23/20 History spironolactone 12.5 mg PO DAILY 08/12/16 08/23/20 History metformin 500 mg PO BID 07/10/17 08/23/20 History acetaminophen [Tylenol] 650 tab PO Q6H PRN PRN #0 08/22/17 08/23/20 Rx aspirin [Lo-Dose Aspirin] 81 mg PO BID #0 08/22/17 08/23/20 Rx diazepam 2 mg PO TID PRN PRN #12 tab 08/22/17 08/23/20 Rx ibuprofen 400 - 800 mg PO Q6H PRN PRN tab 08/22/17 08/23/20 Rx magnesium oxide 400 mg PO BID tab 08/22/17 08/23/20 Rx pantoprazole 40 mg PO DAILY tabcr 08/22/17 08/23/20 Rx polyethylene glycol 3350 17 gm PO DAILY PRN PRN packet 08/22/17 08/23/20 Rx linagliptin 5 mg tablet 5 mg PO QAM 02/16/19 08/23/20 History Lantus Solostar U-100 Insulin 15 unit SUBCUT HS 08/20/20 08/23/20 History oxycodone 5 mg PO Q6H 08/23/20 08/23/20 History Exam Const General: uncooperative, no acute distress and frail appearing (elderly female, older appearing) Nutritional Appearance: average body habitus Orientation: alert and awake HENMT Head: normal to inspection, normocephalic and atraumatic Resp Effort & Inspection: normal respiratory effort Cardio Rate: regular rate Rhythm: regular rhythm GI Inspection: normal to inspection Palpation: soft and nontender Auscultation: normal bowel sounds Skin General skin exam: no rashes or lesions noted Neuro General: patient alert and patient awake Extrem General: no pedal edema Psych Mood: angry Affect: hostile and irritable affect Attitude: refuses to answer Other: unable to fully assess d/t uncooperative behavior. Results Labs Result diagrams: 08/24/20 06:03 08/24/20 06:03 Labs: Laboratory Results - last 24 hr 08/23/20 08/23/20 08/23/20 11:58 11:58 12:20 WBC 9.24 RBC 4.15 Hgb 11.7 Hct 36.1 MCV 87.0 MCH 28.2 MCHC 32.4 RDW 13.5 Plt Count 255 MPV 8.9 Immature Gran % 0.5 Neutrophils % 72.0 Lymphocytes % 18.2 Monocytes % 7.1 Eosinophils % 1.8 Basophils % 0.4 Nucleated RBC % 0 Absolute Neutrophils 6.64 Absolute Lymphocytes 1.68 Absolute Monocytes 0.66 Absolute Eosinophils 0.17 Absolute Basophils 0.04 Sodium 134 L Potassium 4.3 Chloride 97 L Carbon Dioxide 23.4 Anion Gap 13.6 H BUN 32 H Creatinine 1.1 H Estimated GFR/1.73 m2 47.32 Glucose 236 H Calcium 9.2 Total Bilirubin 0.7 AST 26 ALT 27 Alkaline Phosphatase 90 Total Protein 7.4 Albumin 3.4 Urine Color Yellow Urine Clarity Sl cloudy Urine pH 5.5 Ur Specific [place] 1.025 Urine Protein 30 H Urine Ketones 40 H Urine Blood Small H Urine Nitrite Negative Urine Bilirubin Negative Urine Urobilinogen 0.2 Ur Leukocyte Esterase Trace H Urine RBC 5-10 H Urine WBC 3-5 Ur Epithelial Cells Rare Urine Crystals Negative Urine Bacteria Many Urine Casts Negative Urine Mucus Negative Ur Culture Indicated? Yes Urine Glucose 500 H Last Vital Signs Temp 36.6 C 08/23/20 11:37 Pulse 107 H 08/23/20 11:37 Resp 18 08/23/20 11:37 BP 136/85 08/23/20 11:37 Pulse Ox 97 08/23/20 11:37 COVID-19 Screening Have you, or household traveled for leisure in last 14 days?: No Had IN PERSON contact w/suspected or confirmed C-19 person: No
[2020-08-23] MEDS: Normal Saline 250 ML IV (12:37)
[2020-08-23 14:06] LABS: COVID-19 PCR Negative (Negative); Influenza A PCR Negative (Negative); Influenza B PCR Negative (Negative); RSV PCR Negative (Negative)
[2020-08-23] MEDS: Enoxaparin 40 MG/0.4 ML SYR SC (15:30)
[2020-08-23] MEDS: Acetaminophen 325 MG TAB 650 MG PO ×2 (15:30→20:48)
[2020-08-23] MEDS: traMADol 50 MG TAB PO (17:46)
[2020-08-23] MEDS: metFORMIN 500 MG TAB PO (17:46)
[2020-08-23] MEDS: diazePAM 2 MG TAB PO (17:46)
[2020-08-23] MEDS: oxyCODONE 5 MG TAB PO (18:56)
[2020-08-23] MEDS: Ibuprofen 400 MG TAB PO (18:57)
[2020-08-23] MEDS: Aspirin E.C. 81 MG TABEC PO (20:48)
[2020-08-23] MEDS: Magnesium Oxide 400 MG TAB PO (20:48)
[2020-08-23] MEDS: Docusate Sodium 100 MG CAP PO (20:48)
[2020-08-23] MEDS: Insulin Glargine 300 UNITS/3 ML PEN 15 UNITS SC (22:08)
[2020-08-23] MEDS: Lisinopril 20 MG TAB 40 MG PO (22:08)
[2020-08-24] MEDS: traMADol 50 MG TAB PO ×2 (01:05→07:54)
[2020-08-24] MEDS: diazePAM 2 MG TAB PO (01:05)
[2020-08-24 07:00] LABS: Abs Immature Grans 0.03 10^3/uL (0.0-0.06); Absolute Basophil Count 0.04 10^3/uL (0.0-0.2); Absolute Eosinophil Count 0.58 10^3/uL (0.0-0.7); Absolute Lymphocyte Count 2.12 10^3/uL (1.2-3.4); Absolute Neutrophil Count 4.17 10^3/uL (1.2-6.7); Basophils % 0.5; Eosinophils % 7.6; HGB 10.4 g/dL (11.2-15.7); Immature Grans % 0.4; Lymphocytes % 27.7; MCH 28.2 pg (27.0-33.0); MCHC 32.5 % (32.0-36.0); MCV 86.7 fL (80-95); MPV 8.9 fL (8.0-11.0); Monocytes % 9.2; Neutrophils % 54.6; Nucleated RBC 0 %; Platelet Count 265 10^3/uL (130-400); RBC 3.69 10^6/uL (3.93-5.22); RDW 13.6 % (11.7-14.6); WBC 7.64 10^3/uL (4.4-10.8)
[2020-08-24 07:11] LABS: Anion Gap 9.4 mmol/L (3-11); BUN 33 mg/dL (7-18); CO2 26.6 mmol/L (21.0-32.0); Chloride 99 mmol/L (98-107); Estimated GFR 52.82 (mL/min/1.73m2); Glucose 87 mg/dL (74-106); Potassium 3.8 mmol/L (3.5-5.1); Sodium 135 mmol/L (136-145)
[2020-08-24 07:45] VITALS: BP 148/75; PULSE 73; RESP 17; TEMP 35.9; O2SAT 95
[2020-08-24] MEDS: Magnesium Oxide 400 MG TAB PO ×2 (07:54→21:34)
[2020-08-24] MEDS: Acetaminophen 325 MG TAB 650 MG PO ×4 (07:54→21:35)
[2020-08-24] MEDS: Spironolactone 25 MG TAB 12.5 MG PO (07:54)
[2020-08-24] MEDS: Docusate Sodium 100 MG CAP PO ×2 (07:54→21:34)
[2020-08-24] MEDS: Pantoprazole 40 MG TABCR PO (07:54)
[2020-08-24] MEDS: metFORMIN 500 MG TAB PO ×2 (07:55→17:22)
[2020-08-24] MEDS: GLIMEPIRIDE 4 MG TAB PO (07:55)
[2020-08-24] MEDS: Aspirin E.C. 81 MG TABEC PO ×2 (07:55→21:34)
[2020-08-24] MEDS: Sertraline 50 MG TAB 100 MG PO (07:55)
--- NOTE | 2020-08-24 08:58 | PGE_ITS ---
Date of Service Date of service: 08/24/20 Time of Service: 08:58 Assessment and Plan Assessment and plan (1) UTI (urinary tract infection): Status: Acute Assessment and plan: urine growing gram negative rods ceftriaxone day 06/20 while awaiting sensitivities (2) Fracture of ramus of right pubis: Status: Acute Assessment and plan: seen by orthopedics on Friday. non surgical weight bear as tolerated pain management/bowel management- will add fentanyl patch for better coverage round the clock. PT/OT consult walker at all times for gait safety and stability (3) Diabetes mellitus type 2 in obese: Status: Acute Assessment and plan: diabetic diet sliding scale ac/hs continue home medication, trajenta not available A1C 7.4 in jul 2020 (4) DVT prophylaxis: Status: Acute Assessment and plan: enoxaparin daily (5) Discharge planning issues: Status: Acute Assessment and plan: case management following anticipate swing level needs to safely reambulate. will place palliative care consult to review goals of care. discussed with DR Bro Subjective Subjective Patient reports: still having pain and afebrile Interval history since last seen: refusing to be repositioned. refusing meals, refusing PT, states she is having pain ongoing. Exam Const General: uncooperative, no acute distress and frail appearing (elderly female, older appearing) Nutritional Appearance: average body habitus Orientation: alert and awake [facility] Head: normal to inspection, normocephalic and atraumatic Resp Effort & Inspection: normal respiratory effort Cardio Rate: regular rate Rhythm: regular rhythm GI Inspection: normal to inspection Palpation: soft and nontender Auscultation: normal bowel sounds Skin General skin exam: no rashes or lesions noted Neuro General: patient alert and patient awake Extrem General: no pedal edema Psych Mood: angry Affect: hostile and irritable affect Attitude: refuses to answer Objective Last Vital Signs Temp 35.9 C L 08/24/20 07:45 Pulse 73 08/24/20 07:45 Resp 17 08/24/20 07:45 BP 148/75 H 08/24/20 07:45 Pulse Ox 95 08/24/20 07:45 Laboratory Results - last 24 hr 08/23/20 08/23/20 08/23/20 11:58 11:58 12:20 WBC 9.24 RBC 4.15 Hgb 11.7 Hct 36.1 MCV 87.0 MCH 28.2 MCHC 32.4 RDW 13.5 Plt Count 255 MPV 8.9 Immature Gran % 0.5 Neutrophils % 72.0 Lymphocytes % 18.2 Monocytes % 7.1 Eosinophils % 1.8 Basophils % 0.4 Nucleated RBC % 0 Absolute Neutrophils 6.64 Absolute Lymphocytes 1.68 Absolute Monocytes 0.66 Absolute Eosinophils 0.17 Absolute Basophils 0.04 Sodium 134 L Potassium 4.3 Chloride 97 L Carbon Dioxide 23.4 Anion Gap 13.6 H BUN 32 H Creatinine 1.1 H Estimated GFR/1.73 m2 47.32 Glucose 236 H Calcium 9.2 Total Bilirubin 0.7 AST 26 ALT 27 Alkaline Phosphatase 90 Total Protein 7.4 Albumin 3.4 Urine Color Yellow Urine Clarity Sl cloudy Urine pH 5.5 Ur Specific [place] 1.025 Urine Protein 30 H Urine Ketones 40 H Urine Blood Small H Urine Nitrite Negative Urine Bilirubin Negative Urine Urobilinogen 0.2 Ur Leukocyte Esterase Trace H Urine RBC 5-10 H Urine WBC 3-5 Ur Epithelial Cells Rare Urine Crystals Negative Urine Bacteria Many Urine Casts Negative Urine Mucus Negative Ur Culture Indicated? Yes Urine Glucose 500 H COVID-19 Source SARS-CoV-2 (PCR) Influenza Type A (PCR) Influenza Type B (PCR) RSV (PCR) 08/23/20 08/24/20 08/24/20 13:12 06:03 06:03 WBC 7.64 RBC 3.69 L Hgb 10.4 L Hct 32.0 L MCV 86.7 MCH 28.2 MCHC 32.5 RDW 13.6 Plt Count 265 MPV 8.9 Immature Gran % 0.4 Neutrophils % 54.6 Lymphocytes % 27.7 Monocytes % 9.2 Eosinophils % 7.6 Basophils % 0.5 Nucleated RBC % 0 Absolute Neutrophils 4.17 Absolute Lymphocytes 2.12 Absolute Monocytes 0.70 Absolute Eosinophils 0.58 Absolute Basophils 0.04 Sodium 135 L Potassium 3.8 Chloride 99 Carbon Dioxide 26.6 Anion Gap 9.4 BUN 33 H Creatinine 1.0 Estimated GFR/1.73 m2 52.82 Glucose 87 D Calcium 9.0 Total Bilirubin AST ALT Alkaline Phosphatase Total Protein Albumin Urine Color Urine Clarity Urine pH Ur Specific [place] Urine Protein Urine Ketones Urine Blood Urine Nitrite Urine Bilirubin Urine Urobilinogen Ur Leukocyte Esterase Urine RBC Urine WBC Ur Epithelial Cells Urine Crystals Urine Bacteria Urine Casts Urine Mucus Ur Culture Indicated? Urine Glucose COVID-19 Source Nasopharyx SARS-CoV-2 (PCR) Negative Influenza Type A (PCR) Negative Influenza Type B (PCR) Negative RSV (PCR) Negative
--- NOTE | 2020-08-24 10:38 | PT.INIE ---
Date of service: 08/24/20 Time of Service: 10:38 PT Notes Visit Reasons: PELVIC FRACTURE Physical Therapy Inpatient Initial Evaluation Date: 08/24/2020 Referring Doctor: Janice Castillo NP PT Orders: PT CONSULT: Limited ability Precautions: Fall. Standard. WBAT on R LE. Hard of hearing. Patient Profile/Admitting Diagnosis: Wendy is an 84-year-old female with R non-displaced superior and inferior pubic rami fracture sustained from a mechanical fall. Per orthopedic surgeon, fracture is non-operable and ordered WBAT on R LE. PMHX: Medical History (Updated 08/23/20 @ 17:04 by Janice Castillo NP) Complete heart block Diabetes mellitus Hypertension Surgical History (Updated 09/02/17 @ 08:26 by Vaishali Collins) OPEN REDUCTION AND INTERNAL FIXATION WITH COMPRESSION HIP SCREW (08/19/17) DR. GARCIA Social History/Home Situation: Unable to provide information on where she lives at this time. Equipment Owned/DME: Unable to provide information on where she lives at this time. Subjective: Appeared highly anxious about moving and getting out of bed. Adamant about not going anywhere. Had a hard time hearing PT. Asked if mask could be removed so she can read my lips. Requested for a clear mask from Nurse Nakia to maximize communication with patient. Patient indicated that pain is too much and does not want to do anything that will make it worse. Finally agreed after extensive encouragement, initially was okay after slowly sliding her B LE to edge of bed x 3 but moaned in pain when she was about to be sat up. With a second person, patient Objective: General Observation: Appeared highly apprehensive about getting out of bed. Mental Status: Oriented to person and place. Unable and/or unwilling to provide information about home situation/self. Pain: Severe pain in R hip and thigh. Severe avoidance behavior against movement. ROM: Right Upper Extremity: Grossly WFL Left Upper Extremity: Grossly WFL Right Lower Extremity: Only able to slide R LE with manual assist Left Lower Extremity: Grossly WFL Strength: Right Upper Extremity: Grossly 4/5 Left Upper Extremity: Grossly 4/5 Right Lower Extremity: NT but was able to slide R LE with manual assist Left Lower Extremity: Grossly 3/5 Sensation: Intact as to pain and pressure on bilateral lower extremities. Bed Mobility/Transfers: Supine to sit moderate assist of 2 with HOB at 45 degrees Sit to supine moderate assist of 2 Sit to stand refused profusely due to pain and anxiety Stand to sit refused profusely due to pain and anxiety Bed to chair refused profusely due to pain and anxiety Chair to bed refused profusely due to pain and anxiety Gait: refused profusely due to pain and anxiety Balance: Static Sitting: Fair Dynamic Sitting: Poor Static Standing: Unable Dynamic Standing: Unable Special Tests: Mobility Limitations Standardized Measure [facility] AM-PAC 6 clicks Basic Mobility Inpatient Short Form: Raw Score: 6 CMS Score: 100% deficit Informed Consent/Education: Patient instructed in purpose of PT consult and plan of care. Assessment: Pain level and high anxiety are preventing patient from participating in mobility assessment. Will update nurse and hospitalist to mitigate issue. Coordinated with nurse about premedication for pain this afternoon for continued transfer and ambulation task evaluation. Patient will benefit from [facility] facility placement for continued skilled physical therapy services in order to progress mobility level, strength, and balance in preparation for a safe discharge to home. Patient presents with clinical signs and symptoms consistent with current/admitting diagnoses that have resulted to mobility limitations, gait instability, generalized weakness, and impairment of motor control as demonstrated by the following impairment level findings: 1. Decreased strength to B LE major muscle groups 2. Impaired sitting/standing balance 3. Impaired activity tolerance 4. Limitation of joint range of motion in right LE 5. pain in R hip and thigh 6. Increased anxiety due to pain level Impairments are contributing to the following functional limitations: 1. Dependent bed mobility skills 2. Increased dependence with transfers 3. Inability to safely ambulate 4. Increase completion time for mobility ADL performance 5. Increased fall risk 6. Inability to negotiate steps Patient is assessed as a 16293 high complexity based on the following: History: 84-year-old female with impairment level findings, functional limitations, and past medical history as indicated above Examination: Demonstrable impairment in strength, balance, and mobility level with underlying impairments and functional limitations as documented above Presentation:Evolving Decision Makin high complexity Goals: Goals X1 week 1. Supine-Sit contact-guard assist 2. Sit-Supine contact-guard assist 3. Sit-Stand contact-guard assist 4. Stand-Sit contact-guard assist 5. Bed-Chair minimal assist 6. Chair-Bed minimal assist 7. Minimal assist gait on level surface with use of least restrictive device for at least 30 feet without report of pain nor dyspnea 8. Fair static and dynamic standing balance/tolerance Plan of Care/Treatment Plan: 1-2x/day, 7 days/week x 1 week. Plan of care has been reviewed with the GEOTHERMAL ELECTRICAL ENGINEER providing the service under Physical Therapy direction. Initiate Physical Therapy intervention for strengthening, bed mobility, transfers, gait, stairs, balance training, use of assistive device. DISCHARGE RECOMMENDATIONS: Patient will benefit from [facility] facility placement for continued skilled physical therapy services in order to progress mobility level, strength, and balance in preparation for a safe discharge to home. TREATMENT CODE/TIME: 36544 x 30 minutes, 77346 x 12 minutes beginning at 10:38 AM. Thank you for the opportunity to participate in the care of this patient. Vida Calixto PT, DPT, CLT [facility] [place], [place]
[2020-08-24] MEDS: oxyCODONE 5 MG TAB PO (11:16)
[2020-08-24] MEDS: cefTRIAXone 1 GM/50 ML BAG IVPB (11:17)
--- NOTE | 2020-08-24 12:06 | W.INDIABCONS ---
Date of service: 08/24/20 Time of Service: 12:06 Diabetes Inpatient Consult DESCRIPTION/ASSESSMENT: 84 year old female admitted with dementia with agitation. BMI wnl for age with recent A1c of 7.8% indicating mildly elevated blood sugars. DM diet controlled. Education not appropriate at this time. Will be available for family member education as needed. PLAN: Continue diabetic diet, will monitor po intake, labs and weight Time Spent in Nutritional Counseling and Treatment: 0
[2020-08-24] MEDS: fentaNYL 12 MCG PATCH TD (13:09)
--- NOTE | 2020-08-24 13:22 | W.INDIABCONS ---
Date of service: 08/24/20 Time of Service: 13:22 Diabetes Inpatient Consult DESCRIPTION/ASSESSMENT: 84 year old female admitted with fracture of ramus of right pubis/non surgical. pMH: DM 2. Home meds include amaryl 4 mg dq, lantus 15 u HS qd, metformin 500 mg BID. Most recent A1C:7.4%. Glycemic control adequate in view of advanced age. Met with Ms. Michelle to discuss her DM2 and her diet. She has adequate nutrition/DM knowledge to continue to control her Dm2 well at home. Provided contact information. INTERVENTION: Provided education on DM including Hyper/hypoglycemia s/s with action plan for each scenario. Definition and types of CHO with examples, CHO counting, DASH diet materials, DM meal planning and label reading literature. Provided a blood sugar and food record chart and materials to reiterate CHO counting techniques. Reviewed desirable BG levels with patient with food choices and portions for optimal outcomes. Provided contact information for this RD and encouraged to call with any f/u questions r/t to DM self management. CDM from kitchen has been helping to count CHO's and achieve intake of ~65g/CHO per meal period. PLAN: continue diabetic diet will continue to be available prn. Time Spent in Nutritional Counseling and Treatment: 10 min
--- NOTE | 2020-08-24 13:32 | PT.INTREAT ---
Date of service: 08/24/20 Time of Service: 13:32 PT Notes Visit Reasons: PELVIC FRACTURE Inpatient Physical Therapy Treatment Note 08/24/2020 Precautions: Fearful of falling. High anxiety. WBAT on R LE. SUBJECTIVE: Only agreed to doiing bed level activities despite several attempts by PT and SINGLE FOLD MACHINE OPERATOR to educate and persuade patient to participating with PT session. Appears drowsy. OBJECTIVE: Reports significant pain despite premedication for pain by Nurse Shirley. TRANSFERS: Refused profusely GAIT: Refused profusely THEREX: only agreed to doing low intensity ROM exercises including ankle pumps x 10, supine hip flexion/heel slides x 5, supine knee flexion x 5. AAROM to B UE shoulder flexors and extensors as well as to B shoulder hor abd/add'ors x 10. ASSESSMENT: Fearful of falling. High anxiety level. Tearfulness limited today's session. PLAN: Continue to coordinate with nursing staff for pre-medication for pain. Progress transfer task and exercises as tolerated. Treatment time: 96348 x 16 minutes, beginning at 13:32 PM.
[2020-08-24 14:52] VITALS: BP 120/73; PULSE 66; RESP 18; TEMP 36.8; O2SAT 95
--- NOTE | 2020-08-24 15:29 | W.PALLCONSUL ---
Date of service: 08/24/20 Time of Service: 15:15 History of Present Illness Narrative: Wendy Michelle is an 84 year old who lives at the [facility]. She has a past medical history significant for DM2 and is currently admitted for pain control and ambulatory dysfunction after having a fall and sustaining a pubic ramus fracture that was evaluated and deemed inoperable. She reports that she does not have much pain at rest. She has pain when she stands and ambulates. She has a new fentanyl patch on today, she is hoping to have better pain control tomorrow from the patch so she can ambulate more comfortably. She reports that she has not started PT yet. She is willing to work with PT to get back on her feet. When questioned if she would be willing to go to rehab prior to returning to the [facility], she said, I guess so. When discussing CODE status, she states, I have all of that. She is unable to state what her CODE status is. She states she has it on file at [facility]. Will have care management contact [facility] to obtain a copy. She states that her daughter, Hazel is her agent/decision maker if she is unable to speak for herself. She states she has been drinking but she does not feel like eating. I tried to talk about her goals and discuss why she is not eating, but she states, Oh, I don't want to talk about this stuff now. Assessment and Plan Assessment and plan (1) Fracture of superior pubic ramus: Status: Acute (2) Fracture of inferior pubic ramus: Status: Acute (3) UTI (urinary tract infection): Status: Acute (4) Intractable pain: Status: Acute (5) Ambulatory dysfunction: Status: Acute (6) Diabetes mellitus type 2 in obese: Status: Acute (7) Discharge planning issues: Status: Acute (8) Palliative care encounter: Status: Acute Assessment and plan: Wendy Michelle is an 84 year old who lives at the [facility]. She has a past medical history significant for DM2 and is currently admitted for pain control and ambulatory dysfunction after having a fall and sustaining a pubic ramus fracture that was evaluated and deemed inoperable. She was started on Fentanyl patch 12 mcg/hr today. She was prescribed oxycodone and tramadol. Discussed with hospitalist- plan to discontinue tramadol and change oxycodone to 2.5-5 mg as needed for breakthrough pain. She states she would consider rehab if she is not ready to go back to [facility] when she is ready for discharge from the hospital. She was not very interested in any advanced care planning or goals of care discussion today. She states she has code status information on file at [facility], will ask care management to obtain this. She states her daughter Hazel is her agent for health care. She may be more interested in talking when her pain is under better control, although she denies pain at rest. Follow up with palliative as needed. Review of Systems Narrative: Otherwise unwilling to participate. All systems reviewed & are unremarkable except as noted in HPI and below PFSH Medical History Complete heart block Diabetes mellitus Hypertension Surgical History OPEN REDUCTION AND INTERNAL FIXATION WITH COMPRESSION HIP SCREW (08/19/17) DR. GARCIA Social History Smoking/Tobacco Use Status: Former Tobacco Use Smoking risk assessment performed?: Yes Alcohol Intake: never Drug use: Never Exam Narrative Exam Narrative: General: Elderly female, laying back in hospital bed. Awake but appears drowsy. Seems bothered by my questions. HEENT: Atraumatic, skin is pale, mucous membranes dry. Neck: supple. Cardiovascular: heart sounds regular, 3/6 murmur noted at RSB. Respiratory: respirations appear even and unlabored, lungs sound clear on anterior and lateral exam. She is unable to sit for posterior respiratory exam. GI: +BS, soft, nontender on palpation, nondistended, Extremities: no edema. Unable to bend RLE due to pain, moves LLE freely in bed. Results Last Vital Signs Temp 36.8 C 08/24/20 14:52 Pulse 66 08/24/20 14:52 Resp 18 08/24/20 14:52 BP 120/73 08/24/20 14:52 Pulse Ox 95 08/24/20 14:52 Labs Result diagrams: 08/24/20 06:03 08/24/20 06:03 Labs: Laboratory Results - last 24 hr 08/24/20 08/24/20 06:03 06:03 WBC 7.64 RBC 3.69 L Hgb 10.4 L Hct 32.0 L MCV 86.7 MCH 28.2 MCHC 32.5 RDW 13.6 Plt Count 265 MPV 8.9 Immature Gran % 0.4 Neutrophils % 54.6 Lymphocytes % 27.7 Monocytes % 9.2 Eosinophils % 7.6 Basophils % 0.5 Nucleated RBC % 0 Absolute Neutrophils 4.17 Absolute Lymphocytes 2.12 Absolute Monocytes 0.70 Absolute Eosinophils 0.58 Absolute Basophils 0.04 Sodium 135 L Potassium 3.8 Chloride 99 Carbon Dioxide 26.6 Anion Gap 9.4 BUN 33 H Creatinine 1.0 Estimated GFR/1.73 m2 52.82 Glucose 87 D Calcium 9.0
[2020-08-24] MEDS: Enoxaparin 40 MG/0.4 ML SYR SC (16:10)
--- NOTE | 2020-08-24 16:56 | INITIAL_ITS ---
- If Service Date Differs Date of service: 08/24/20 Time of Service: 16:56 Care Management Initial Assess REASON FOR HOSPITALIZATION:: Pelvic Fracture PAST MEDICAL HISTORY/PAST SURGICAL HISTORY:: Medical History. Complete heart block. Diabetes mellitus. Hypertension. Surgical History. OPEN REDUCTION AND INTERNAL FIXATION WITH COMPRESSION HIP SCREW (08/19/17). DR. GARCIA PREVIOUS FUNCTIONAL STATUS/SOCIAL/FAMILY SUPPORTS:: Wendy lives at the [facility]. She has three children, only one of which lives in [place], her daughter, Hazel. She reports that she doesn't see or talk to her children as much as she would like, but this is due to Covid. She is a retired nurse. She requires minimal assistance (prior to this admission) with ADL's, and receives support from staff at the [facility]. CURRENT FUNCTIONAL STATUS:: Wendy was lying in bed when CM met with her. She reported that she is feeling very weak. She answered questions, but was not fully engaged with CM during the conversation. CM discussed her discharge plan, and she is agreeable to short term rehab at [facility], if possible. CM sent the referral to [facility] for consideration. CM will continue to follow. ADVANCE DIRECTIVES:: AD on file, Hazel listed as agent. Has patient been provided with info about the portal/API?: No Did the patient sign up for the portal?: No CODE STATUS:: Full Code INSURANCE COVERAGE / FINANCIAL ISSUES:: [facility] CURRENT HOME/COMMUNITY SERVICES/EQUIPMENT:: Wendy lives at the [facility], where she receives support with ADL's. PRIMARY CARE PHYSICIAN:: Criss Clay POTENTIAL DISCHARGE NEEDS:: Short term rehab PATIENT/FAMILY EDUCATION NEEDS:: Review discharge instructions regarding activity levels and medications, discussion of self care needs and goals of care. ANTICIPATED BARRIERS TO DISCHARGE:: None identified at this time. TRANSPORTATION:: Via facility w/c van PLAN:: CM sent a referral for short term rehab to [facility] for consideration. If accepted, she will transition to rehab once medically cleared. She will return to the [facility] once she has completed her rehab goals. She will transport via facility w/c van. CM will continue to follow.
[2020-08-24] MEDS: Lisinopril 20 MG TAB 40 MG PO (21:35)
[2020-08-24] MEDS: Insulin Glargine 300 UNITS/3 ML PEN 15 UNITS SC (21:35)
[2020-08-24 23:34] VITALS: BP 128/68; PULSE 68; RESP 20; TEMP 36.7; O2SAT 97
[2020-08-25] MEDS: oxyCODONE 5 MG TAB PO (01:36)
[2020-08-25] MEDS: diazePAM 2 MG TAB PO (01:36)
[2020-08-25] MEDS: Ibuprofen 400 MG TAB PO (05:49)
--- NOTE | 2020-08-25 09:38 | PTTR_ITS ---
Date of service: 08/25/20 Time of Service: 09:38 PT Notes Visit Reasons: PELVIC FRACTURE Inpatient Physical Therapy Treatment Note 08/25/2020 Precautions: Fearful of falling. High anxiety. WBAT on R LE. SUBJECTIVE: Highly anxious and fearful of falling. Anticipates pain. Refused to do anything else this morning after transfer from bed to chair using STEDY lift. OBJECTIVE: TRANSFERS Supine to sit: Moderate assist of 2 with HOB at 45 degrees Sit to stand: STEDY lift due to increasing anxiety level and tearfulness, required extensive encouragement and maximal verbal cueing for safety Stand to sit: STEDY lift due to increasing anxiety level and tearfulness, required extensive encouragement and maximal verbal cueing for safety Bed to chair: STEDY lift due to increasing anxiety level and tearfulness, required extensive encouragement and maximal verbal cueing for safety GAIT Device: STEDY lift Weight bearing: WBAT on R LE Assist: Assist of 2 and maximal verbal cueing from PT for safety and sequence Distance: N/A Deviation: N/A ASSESSMENT: Patient refused to do anything else due to increasing anxiety level and tearfulness, required extensive encouragement and maximal verbal cueing for safety. Fearfulness of falling and high anxiety level are primary risk factors for high fall risk and are the main barriers to mobility training. Will benefit from SNF placement to allow progression with transfer and ambulation task performance prior to returning to [facility]. PLAN: Continue to coordinate with nursing staff for pre-medication for pain. Progress transfer task and exercises as tolerated. Treatment time: 30508 x 32 minutes beginning at 9:38 AM.
[2020-08-25] MEDS: Aspirin E.C. 81 MG TABEC PO ×2 (10:36→20:57)
[2020-08-25] MEDS: Acetaminophen 325 MG TAB 650 MG PO ×3 (10:36→20:55)
[2020-08-25] MEDS: Magnesium Oxide 400 MG TAB PO ×2 (10:38→20:56)
[2020-08-25] MEDS: GLIMEPIRIDE 4 MG TAB PO (10:38)
[2020-08-25] MEDS: Docusate Sodium 100 MG CAP PO ×2 (10:38→20:58)
[2020-08-25] MEDS: metFORMIN 500 MG TAB PO ×2 (10:38→17:23)
[2020-08-25] MEDS: Polyethylene Glycol 3350 17 GM PACKET PO (10:39)
[2020-08-25] MEDS: Sertraline 50 MG TAB 100 MG PO (10:39)
[2020-08-25] MEDS: Spironolactone 25 MG TAB 12.5 MG PO (10:39)
[2020-08-25] MEDS: Pantoprazole 40 MG TABCR PO (10:39)
[2020-08-25] MEDS: Cephalexin 500 MG CAP PO ×3 (11:47→20:58)
--- NOTE | 2020-08-25 14:59 | PGE_ITS ---
Date of Service Date of service: 08/25/20 Time of Service: 14:59 Assessment and Plan Assessment and plan (1) Chronic upset stomach: Status: Chronic Assessment and plan: Her caregivers at where she has lived for years report that Wendy usually has an upset stomach. I thought it was due to her having narcotics, but this is not accurate. She is on a PPI. She may be having some constipation. Will ask nurses to keep close eye on her bowels. 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 She doesn't like to discuss her health or health options. She tends to avoid problems. Staff at report that she is very afraid of falling. She won't even try to stand up, now that she has fallen and broken her pelvis. She also has a history of a more remote hip fracture. When she is anxious, she shuts down, and can be hard to engage. (3) Fracture of superior pubic ramus: Status: Acute (4) Fracture of inferior pubic ramus: Status: Acute (5) Ambulatory dysfunction: Status: Acute Assessment and plan: Her pain, she reported, was controlled this am. She is terrified of falling again, however, so she avoids even trying. (6) Irritable behavior: Status: Chronic Assessment and plan: According to staff at , Wendy is more often irritable than not. She usually is aware of this. She was pleasant with me, however. Comes and goes, her mood. (7) POLST (Physician Orders for Life-Sustaining Treatment): Status: Acute Assessment and plan: Ideally, should be updated as soon as she is open to this discussion. Several people have tried. Her daughter, who is her health care agent, does not want to bring it up with her mother as her mother has avoided talking about her wishes for a long time, apparently. (8) UTI (urinary tract infection): Status: Acute Assessment and plan: Wendy pulled out her IV and did not want it replaced, therefore we changed her antibiotic from ceftriaxone to keflex. Her UA sensitivities showed klebsiella, sensitive to cephalosporins. Qualifiers: Urinary tract infection type: acute cystitis Hematuria presence: without hematuria Qualified Code(s): N30.00 - Acute cystitis without hematuria Subjective Subjective Patient reports: pain is less and nausea; denies tolerating a regular diet Interval history since last seen: Wendy received both oxycodone and valium last night. She slept soundly until mid -morning. When I saw her late morning, she reported she did feel well. She couldn't pi npoint what was bothering her. She denied any pain. She was rubbing her stomach. I spoke to her caregiver/DON at [facility] who reports that Wendy is often sick to her stomach. Many days she just sips shawn bal. She does not take valium in her home setting. She just started with one dose of oxycodone prior to this admission, after trying tramadol that did not work. She seems comfortable with her fentanyl patch, and she will have vicodin available to her prn. I also reviewed her advance directives which were signed 5 years ago. Apparently Lupe Huerta from [facility] has tried to approach her wishes with her. Yesica Camargo, GABRIELA from Palliative Care saw her yesterday and she again refused to discuss her CODE status and other wishes. It does seem essential that she update her form, given the overall decline in her health over the intervening 5 years. Exam Const General: no acute distress and frail appearing (elderly female, older appearing) Nutritional Appearance: overweight Orientation: alert and awake [facility] Head: normal to inspection, normocephalic and atraumatic Eyes Conjunctivae: conjunctivae normal Sclera: sclerae normal Resp Effort & Inspection: normal respiratory effort Auscultation: clear to auscultation bilaterally Cardio Rate: regular rate Rhythm: regular rhythm GI Inspection: normal to inspection Palpation: soft and nontender Auscultation: normal bowel sounds Skin General skin exam: no rashes or lesions noted Neuro General: patient alert and patient awake Cognition: abnormal cognition (unsure where she usually lives, history vague) Sensory Exam: no sensory deficits noted Extrem General: no pedal edema Psych Appearance: grossly normal Speech and Movement: delayed speech and slowed movement Mood: congruent mood Affect: normal affect Attitude: cooperative Thought Process: impoverished Insight: limited Judgment: limited Objective Last Vital Signs Temp 98.1 F 08/24/20 23:34 Pulse 68 08/24/20 23:34 Resp 20 08/24/20 23:34 BP 128/68 08/24/20 23:34 Pulse Ox 97 08/24/20 23:34
[2020-08-25 15:08] VITALS: BP 149/75; PULSE 78; RESP 18; TEMP 37.2; O2SAT 96
--- NOTE | 2020-08-25 15:19 | PT.INTREAT ---
Date of service: 08/25/20 Time of Service: 13:40 PT Notes Visit Reasons: PELVIC FRACTURE Inpatient Physical Therapy Treatment Note [facility] Date: 08/25/2020 PRECAUTIONS: Fall, WBAT R SUBJECTIVE: Wendy is hesitant to participate in PT, as she indicates that she has a significant fear of falling. She is also in significant pain with movement. She is eventually agreeable to attempting to participate in PT to transfer from chair to bed. OBJECTIVE: PAIN: Patient complained of back pain with transfers and weight bearing on R LE BED MOBILITY/TRANSFERS Rolling L/R: Max A Sit-supine: Max A x2 with HOB flat Sit-stand: Min A + CGA x2 with STEDY Stand-sit: CGA x2 with STEDY Chair-bed: STEDY GAIT: Unable THEREX: Patient was instructed in several lower extremity strengthening exercises, performed in a seated position, as per flow sheet. ASSESSMENT: Patient tolerated session with complaint of increased back pain with transfers and weight bearing on R LE. She continues to require significant assist for bed mobility at this time. PLAN: Continue with global strengthening as well as continued gait and transfer training for improved mobility and activity tolerance TREATMENT CODE/TIME: 25 minutes; 99808, 72913 (13:40)
[2020-08-25] MEDS: Enoxaparin 40 MG/0.4 ML SYR SC (17:23)
[2020-08-25] MEDS: Insulin Aspart 300 UNITS/3 ML PEN SC (17:24)
--- NOTE | 2020-08-25 20:00 | PDOC.CMPRO ---
- If Service Date Differs Date of service: 08/25/20 Time of Service: 20:00 Care Management Progress Note S/O: Wendy was sitting up in her chair when CM met with her. She reported that she is in a lot of pain today. CM reviewed her discharge plan, which is to go to short term rehab once she is medically cleared, which she is in agreement with. CM sent a referral to [facility], awaiting bed confirmation. CM will continue to follow. A: Wendy is an 84 year old female admitted to [facility] on 08/23/20 with a pelvic fracture. P: JANES sent a referral for short term rehab to [facility] for consideration. If accepted, she will transition to rehab once medically cleared. She will return to the [facility] once she has completed her rehab goals. She will transport via facility w/c van. CM will continue to follow.
[2020-08-25] MEDS: HYDROcodone 5/Acetaminophen 325 TAB PO (20:57)
[2020-08-25] MEDS: Insulin Glargine 300 UNITS/3 ML PEN 15 UNITS SC (21:41)
[2020-08-25] MEDS: Lisinopril 20 MG TAB 40 MG PO (21:41)
[2020-08-25 23:45] VITALS: BP 152/77; PULSE 82; RESP 16; TEMP 36.9; O2SAT 99
[2020-08-26] MEDS: Ibuprofen 400 MG TAB PO ×2 (02:22→16:59)
[2020-08-26] MEDS: Acetaminophen 325 MG TAB 650 MG PO ×2 (05:02→14:38)
[2020-08-26 07:38] VITALS: BP 142/83; PULSE 69; RESP 17; TEMP 35.8; O2SAT 96
[2020-08-26] MEDS: Cephalexin 500 MG CAP PO ×3 (08:29→21:09)
[2020-08-26] MEDS: Aspirin E.C. 81 MG TABEC PO ×2 (08:29→21:09)
[2020-08-26] MEDS: Polyethylene Glycol 3350 17 GM PACKET PO ×2 (08:30→08:33)
[2020-08-26] MEDS: Docusate Sodium 100 MG CAP PO ×2 (08:31→21:09)
[2020-08-26] MEDS: metFORMIN 500 MG TAB PO ×2 (08:31→16:50)
[2020-08-26] MEDS: GLIMEPIRIDE 4 MG TAB PO (08:31)
[2020-08-26] MEDS: Sertraline 50 MG TAB 100 MG PO (08:32)
[2020-08-26] MEDS: Magnesium Oxide 400 MG TAB PO ×2 (08:32→21:08)
[2020-08-26] MEDS: Spironolactone 25 MG TAB 12.5 MG PO (08:32)
[2020-08-26] MEDS: Pantoprazole 40 MG TABCR PO (08:32)
[2020-08-26] MEDS: Insulin Aspart 300 UNITS/3 ML PEN SC ×2 (08:33→11:44)
--- NOTE | 2020-08-26 09:42 | PGE_ITS ---
Date of Service Date of service: 08/26/20 Time of Service: 09:45 Assessment and Plan Assessment and plan (1) Chronic upset stomach: Status: Chronic Assessment and plan: She denies GI upset today. Continue PPI. No BM recorded, schedule bowel regimen. (2) Anxiety about health: Status: Chronic Assessment and plan: States she has no goals or plans. Prefers not to discuss advanced care plans. (3) Fracture of superior pubic ramus: Status: Acute (4) Fracture of inferior pubic ramus: Status: Acute (5) Ambulatory dysfunction: Status: Acute Assessment and plan: R/T pubic R rami Fx, superior and inferior after falling at [facility]. Pain is controlled at rest with Fentanyl patch. ? if Fentanyl patch is contributing to her reports of not feeling well or if this is her baseline. She also has Nucynta for breakthrough pain, she has only required one dose in 24 hours. Schedule bowel regimen. Continue pain control and PT. Plan is for discharge to the Rehab on Friday. (6) Irritable behavior: Status: Chronic Assessment and plan: This is her baseline per [facility] staff. (7) POLST (Physician Orders for Life-Sustaining Treatment): Status: Acute Assessment and plan: She has not been open to discussing CODE status or any other advanced care planning. She would benefit from ongoing discussion about goals of care if she is open to it at some point. (8) UTI (urinary tract infection): Status: Acute Assessment and plan: Her UA sensitivities showed klebsiella, sensitive to cephalosporins. She was on Ceftriaxone, she has been changed to Keflex. She denies any urinary complaints. Continue Keflex. Qualifiers: Hematuria presence: without hematuria Urinary tract infection type: acute cystitis Qualified Code(s): N30.00 - Acute cystitis without hematuria (9) Diabetes mellitus type 2 in obese: Status: Acute Assessment and plan: Her fingersticks have been elevated. Increase lantus to 18 units. Continue to monitor Blood glucose, continue sliding scale. (10) DVT prophylaxis: Status: Acute Assessment and plan: Subcutaneous Lovenox. (11) Discharge planning issues: Status: Acute Assessment and plan: As above, plan is to discharge to [facility] rehab on Friday. She remains a full code, she is not open to discussing goals of care. Subjective Subjective Patient reports: no new complaints Interval history since last seen: Wendy states, I am not feeling well. She cannot elaborate on what does not feel well. She reports having a sore on her bottom. She denies pain. She is able to move her RLE today. She denies working with PT yet today. She reports that she got up to the chair yesterday, she states, they left me in that chair all day. When questioning if she wants to continue to work with PT and get stronger she states, I do but I'm not doing it today. She is eating and drinking and tolerating her diet. Her appetite is poor. She denies nausea, or GI upset. She reports that she had a BM overnight. She denies dysuria. Exam Narrative Exam Narrative: General: Elderly female, laying in hospital bed. Awake and alert, seems irritable. Answers questions appropriately, in NAD. HEENT: Atraumatic, skin is pale, mucous membranes dry. Neck: supple. Cardiovascular: heart sounds regular, 2/6 murmur noted at RSB. Respiratory: respirations appear even and unlabored, lungs are clear throughout. GI: +BS, soft. round, nontender on palpation, nondistended, Extremities: no edema. She is able to move both legs in bed. Objective Last Vital Signs Temp 35.8 C L 08/26/20 07:38 Pulse 69 08/26/20 07:38 Resp 17 08/26/20 07:38 BP 142/83 H 08/26/20 07:38 Pulse Ox 96 08/26/20 07:38
--- NOTE | 2020-08-26 09:57 | PTTR_ITS ---
Date of service: 08/26/20 Time of Service: 09:57 PT Notes Visit Reasons: PELVIC FRACTURE 08/26/2020 SUBJECTIVE: She notes that her buttocks are hurting her. She is irritable and does not want to get up. She states she cannot stand on her right leg. She does eventually admit that she is quite fearful of falling. She does not want to go to the chair as she was in the chair too long yesterday. OBJECTIVE: TRANSFERS Supine to sit: Max A x 2 Sit to supine: Max A x 2 Sit to stand: Min A x 1 Stand to sit: Min A x 1 GAIT: Unable; does stand for 45 seconds to change the bed. THEREX: Defer due to irritation. ASSESSMENT: Pt is quite fearful of falling and this is limiting her activity. She does stand at edge of bed holding onto walking without sway or LOB. We will continue to progress her mobility as she can tolerate. PLAn: Continue current POC. Treatment time: 20' [id number] Maryanne Cooper PTA Clinic location: [facility] [place], [place]
--- NOTE | 2020-08-26 10:27 | CMPROGNOTE_ITS ---
Care Management Progress Note S/O: Wendy continued to be closely monitored at this time. CM awaiting bed confirmation from [facility] to confirm disposition. CM will continue to follow. A: Wendy is an 84 year old female admitted to [facility] on 08/23/20 with a pelvic fracture. P: CM sent a referral for short term rehab to [facility] for consideration. If accepted, she will transition to rehab once medically cleared. She will return to the [facility] once she has completed her rehab goals. She will transport via facility w/c van. CM will continue to follow.
--- NOTE | 2020-08-26 10:27 | PDOC.CMPRO ---
Care Management Progress Note S/O: Wendy continued to be closely monitored at this time. CM awaiting bed confirmation from [facility] to confirm disposition. CM will continue to follow. A: Wendy is an 84 year old female admitted to [facility] on 08/23/20 with a pelvic fracture. P: CM sent a referral for short term rehab to [facility] for consideration. If accepted, she will transition to rehab once medically cleared. She will return to the [facility] once she has completed her rehab goals. She will transport via facility w/c van. CM will continue to follow.
[2020-08-26] MEDS: hydrOXYzine HCL 25 MG TAB PO (14:35)
[2020-08-26 15:28] VITALS: BP 154/73; PULSE 77; RESP 17; TEMP 36.5; O2SAT 95
[2020-08-26] MEDS: Enoxaparin 40 MG/0.4 ML SYR SC (16:50)
[2020-08-26] MEDS: Lisinopril 20 MG TAB 40 MG PO (21:07)
[2020-08-26] MEDS: Senna TAB 1 TAB PO (21:09)
[2020-08-26] MEDS: Insulin Glargine 300 UNITS/3 ML PEN 18 UNITS SC (21:10)
[2020-08-27 00:50] VITALS: BP 144/78; PULSE 76; RESP 16; TEMP 36; O2SAT 95
[2020-08-27] MEDS: Acetaminophen 325 MG TAB 650 MG PO ×2 (00:59→08:03)
[2020-08-27] MEDS: Ibuprofen 400 MG TAB PO ×2 (04:32→17:40)
[2020-08-27] MEDS: hydrOXYzine HCL 25 MG TAB PO (04:33)
[2020-08-27 06:55] LABS: HCT 33.3 % (36.0-46.0); HGB 11.1 g/dL (11.2-15.7); MCH 28.6 pg (27.0-33.0); MCHC 33.3 % (32.0-36.0); MCV 85.8 fL (80-95); MPV 8.6 fL (8.0-11.0); Platelet Count 318 10^3/uL (130-400); RBC 3.88 10^6/uL (3.93-5.22); RDW 13.4 % (11.7-14.6); RDW-SD 42.5 fL; WBC 7.81 10^3/uL (4.4-10.8)
[2020-08-27 07:15] VITALS: BP 146/74; PULSE 72; RESP 17; TEMP 37.2; O2SAT 96
[2020-08-27] MEDS: Sertraline 50 MG TAB 100 MG PO (08:01)
[2020-08-27] MEDS: Polyethylene Glycol 3350 17 GM PACKET PO (08:01)
[2020-08-27] MEDS: Docusate Sodium 100 MG CAP PO ×2 (08:02→20:55)
[2020-08-27] MEDS: metFORMIN 500 MG TAB PO ×2 (08:02→17:40)
[2020-08-27] MEDS: Senna TAB 1 TAB PO ×2 (08:02→20:56)
[2020-08-27] MEDS: Spironolactone 25 MG TAB 12.5 MG PO (08:02)
[2020-08-27] MEDS: Cephalexin 500 MG CAP PO ×3 (08:02→20:56)
[2020-08-27] MEDS: Aspirin E.C. 81 MG TABEC PO ×2 (08:02→20:55)
[2020-08-27] MEDS: GLIMEPIRIDE 4 MG TAB PO (08:03)
[2020-08-27] MEDS: Magnesium Oxide 400 MG TAB PO ×2 (08:03→20:56)
[2020-08-27] MEDS: Pantoprazole 40 MG TABCR PO (08:03)
--- NOTE | 2020-08-27 10:00 | PTTR_ITS ---
Date of service: 08/27/20 Time of Service: 10:00 PT Notes Visit Reasons: PELVIC FRACTURE 08/27/2020 SUBJECTIVE: She is feeling a little better today. Less pain noted. She is fatigued. She notes she does not have a lot of feeling in the R knee. OBJECTIVE: TRANSFERS Supine to sit: Mod A x 2 Sit to supine: Mod A x 2 Sit to stand: Mod A x 2 Stand to sit: Mod A x 2 GAIT Device: FWW Weight bearing: AT Assist: Min A x 2 Distance: 2 side steps to the right Deviation: Decreased stance on the R LE. Pain in the R knee. Fearful of falling THEREX: Light LE strengthening performed in supine position. This is limited as pt is falling asleep. See flow sheet. ASSESSMENT: Improved pain control today. Continues to be very fearful of falling and placing weight through the R leg. She complains of knee discomfort throughout and due to pt being a poor historian I am unsure if this was a proble m prior to this last fall. Continue to progress mobility as she is able to tolerate. PLAN: Continue per POC. Treatment time: 25' [id number], [id number] Maryanne Cooper PTA Clinic location: [facility] [place], [place]
--- NOTE | 2020-08-27 10:41 | PHA.REVIEW ---
Pharmacy Admission Review - Admission Clinical Review (Last Updated 08/25/20 @ 15:15 by Holly Hollis MD) POLST (Physician Orders for Life-Sustaining Treatment) (Acute) Palliative care encounter (Acute) UTI (urinary tract infection) (Acute) Intractable pain (Acute) Fracture of superior pubic ramus (Acute) Fracture of inferior pubic ramus (Acute) Ambulatory dysfunction (Acute) Diabetes mellitus type 2 in obese (Acute) Discharge planning issues (Acute) DVT prophylaxis (Acute) Fracture of ramus of right pubis (Acute) chlorpheniramine polistirex [From Tussionex] Allergy (Unverified 08/23/20 12:45) codeine Allergy (Unverified 08/23/20 12:45) hydrocodone polistirex [From Tussionex] Allergy (Unverified 08/23/20 12:45) meperidine HCl [From Demerol] Allergy (Unverified 08/23/20 12:45) Penicillins Allergy (Unverified 08/23/20 12:45) scallops Allergy (Unverified 08/23/20 12:45) shellfish derived Allergy (Unverified 08/23/20 12:45) Sulfa (Sulfonamide Antibiotics) Allergy (Unverified 08/23/20 12:45) Height 5 ft 4 in Weight 75.2 kg - Renal Dosing Renal Dosing: BUN 33 mg/dL (7-18) H 08/24/20 06:03 Creatinine 1.0 mg/dL (0.55-1.02) 08/24/20 06:03 Medications needing adjustments: Reviewed (crcl ~36ml/min) - Anticoagulation Anticoagulation: Hgb 11.1 g/dL (11.2-15.7) L 08/27/20 06:25 Hct 33.3 % (36.0-46.0) L 08/27/20 06:25 Plt Count 318 10^3/uL (130-400) 08/27/20 06:25 Creatinine 1.0 mg/dL (0.55-1.02) 08/24/20 06:03 DVT Prohphylaxis: Reviewed Medications: Enoxaparin Therapeutic Anticoagulation: N/A - Opiate Usage Evaluate Pain Scale/Pains Meds: Reviewed Scheduled Bowel Reg ordered if on Opiates?: Yes - Relevant Labs Sodium 135 mmol/L (136-145) L 08/24/20 06:03 Potassium 3.8 mmol/L (3.5-5.1) 08/24/20 06:03 Chloride 99 mmol/L (98-107) 08/24/20 06:03 Electrolytes, C-Reactive P, ESR: Reviewed - DM Control DM Control: Glucose 87 mg/dL (74-106) D 08/24/20 06:03 Finger Stick Blood Glucose 98 Insulin Dosing: Reviewed - BP Control BP Control: Blood Pressure 146/74 Blood Pressure 144/78 If elevated: Reviewed - Qtc Review If Elevated: N/A - IV to PO Switch IV Medications: Reviewed (all PO meds) - Home Meds Home Med List reviewed: Reviewed (retail list shows metformin ER but same total daily dose) - Current meds Current Medication Order Review: Reviewed - Comments Comments/Follow Ups: discharge to [facility] tomorrow
--- NOTE | 2020-08-27 11:40 | W.PM.PROGNOT ---
Date of Service Date of service: 08/27/20 Time of Service: 11:40 Assessment and Plan Assessment and plan (1) UTI (urinary tract infection): Status: Acute Assessment and plan: urine growing klebsiella pneum downstepped to keflex based on sensitivities Qualifiers: Hematuria presence: without hematuria Urinary tract infection type: acute cystitis Qualified Code(s): N30.00 - Acute cystitis without hematuria (2) Fracture of ramus of right pubis: Status: Acute Assessment and plan: seen by orthopedics. non surgical weight bear as tolerated pain management/bowel management- will increase fentanyl patch for better coverage round the clock as she has been using nuycenta . PT/OT consult walker at all times for gait safety and stability (3) Diabetes mellitus type 2 in obese: Status: Acute Assessment and plan: blood sugars have been controlled on current regimen continue diabetic diet sliding scale ac/hs continue home medication, trajenta not available A1C 7.4 in jul 2020 (4) DVT prophylaxis: Status: Acute Assessment and plan: enoxaparin daily (5) Discharge planning issues: Status: Acute Assessment and plan: case management following anticipate swing level needs to safely reambulate. discussed with Dr Irizarry Subjective Subjective Patient reports: no new complaints and afebrile Exam Const General: uncooperative, no acute distress and frail appearing (elderly female, older appearing) Nutritional Appearance: average body habitus Orientation: alert and awake HENAZ Head: normal to inspection, normocephalic and atraumatic Resp Effort & Inspection: normal respiratory effort Cardio Rate: regular rate Rhythm: regular rhythm GI Inspection: normal to inspection Palpation: soft and nontender Auscultation: normal bowel sounds Skin General skin exam: no rashes or lesions noted Neuro General: patient alert and patient awake Extrem General: no pedal edema Psych Mood: angry Affect: hostile and irritable affect Attitude: refuses to answer Objective Last Vital Signs Temp 37.2 C 08/27/20 07:15 Pulse 72 08/27/20 07:15 Resp 17 08/27/20 07:15 BP 146/74 H 08/27/20 07:15 Pulse Ox 96 08/27/20 07:15 Laboratory Results - last 24 hr 08/27/20 06:25 WBC 7.81 RBC 3.88 L Hgb 11.1 L Hct 33.3 L MCV 85.8 MCH 28.6 MCHC 33.3 RDW 13.4 Plt Count 318 MPV 8.6
[2020-08-27] MEDS: fentaNYL 12 MCG PATCH TD (11:44)
[2020-08-27] MEDS: fentaNYL 25 MCG PATCH TD (13:06)
[2020-08-27 15:13] VITALS: BP 144/78; PULSE 75; RESP 18; TEMP 36.6; O2SAT 98
--- NOTE | 2020-08-27 17:00 | CMPROGNOTE_ITS ---
Care Management Progress Note S/O: Wendy continued to be closely monitored at this time. CM awaiting bed confirmation from [facility] to confirm disposition. CM will continue to follow. A: Wendy is an 84 year old female admitted to [facility] on 08/23/20 with a pelvic fracture. P: CM sent a referral for short term rehab to [facility] for consideration. If accepted, she will transition to rehab once medically cleared. She will return to the [facility] once she has completed her rehab goals. She will transport via facility w/c van. CM will continue to follow.
--- NOTE | 2020-08-27 17:00 | PDOC.CMPRO ---
Care Management Progress Note S/O: Wendy continued to be closely monitored at this time. CM awaiting bed confirmation from [facility] to confirm disposition. CM will continue to follow. A: Wendy is an 84 year old female admitted to [facility] on 08/23/20 with a pelvic fracture. P: CM sent a referral for short term rehab to [facility] for consideration. If accepted, she will transition to rehab once medically cleared. She will return to the [facility] once she has completed her rehab goals. She will transport via facility w/c van. CM will continue to follow.
[2020-08-27] MEDS: Enoxaparin 40 MG/0.4 ML SYR SC (17:40)
[2020-08-27] MEDS: Lisinopril 20 MG TAB 40 MG PO (22:22)
[2020-08-27] MEDS: Insulin Glargine 300 UNITS/3 ML PEN 18 UNITS SC (22:25)
[2020-08-27 23:30] VITALS: BP 131/80; PULSE 84; RESP 17; TEMP 36.3; O2SAT 95
[2020-08-28] MEDS: Acetaminophen 325 MG TAB 650 MG PO ×2 (02:22→19:31)
[2020-08-28] MEDS: Milk of Magnesia 30 ML CUP PO (02:22)
[2020-08-28] MEDS: Pantoprazole 40 MG TABCR PO (07:56)
[2020-08-28] MEDS: GLIMEPIRIDE 4 MG TAB PO (07:57)
[2020-08-28] MEDS: Aspirin E.C. 81 MG TABEC PO ×2 (07:57→19:31)
[2020-08-28] MEDS: Senna TAB 1 TAB PO ×2 (07:57→19:31)
[2020-08-28] MEDS: Docusate Sodium 100 MG CAP PO ×2 (07:57→19:31)
[2020-08-28] MEDS: Sertraline 50 MG TAB 100 MG PO (07:58)
[2020-08-28] MEDS: metFORMIN 500 MG TAB PO ×2 (07:58→17:04)
[2020-08-28] MEDS: Magnesium Oxide 400 MG TAB PO ×2 (08:00→19:31)
[2020-08-28] MEDS: Cephalexin 500 MG CAP PO ×3 (08:00→19:31)
[2020-08-28] MEDS: Spironolactone 25 MG TAB 12.5 MG PO (08:01)
[2020-08-28] MEDS: Polyethylene Glycol 3350 17 GM PACKET PO (08:03)
[2020-08-28 08:04] VITALS: BP 149/76; PULSE 77; RESP 18; TEMP 36.2; O2SAT 97
[2020-08-28] MEDS: Bisacodyl 10 MG SUPP PR (09:57)
[2020-08-28] MEDS: Insulin Aspart 300 UNITS/3 ML PEN SC (12:01)
--- NOTE | 2020-08-28 13:48 | PTTR_ITS ---
Date of service: 08/28/20 Time of Service: 13:48 PT Notes Visit Reasons: PELVIC FRACTURE Inpatient Physical Therapy Treatment Note 08/28/2020 Precautions: Fearful of falling. High anxiety. WBAT on R LE. SUBJECTIVE: More cooperative today. Less anxious with weight bearing in the afternoon. OBJECTIVE: TRANSFERS Supine to sit: Min A x 2 Sit to supine: Min A x 2 Sit to stand: Min A x 2 Stand to sit: Min A GAIT Device: FWW Weight bearing: WBAT on R LE Assist: In the morning, needed use of STEDY machine due to anxiety level with LNAs Eulogio and SCRIPT READER Maryuri assisting. CGA of PT and SBA of student Nurse Liza in the afternoon. Distance: 4 steps +3 sidesteps in the afternoon Deviation: Decreased stance on the R LE. Pain in the R knee. Fearful of falling. Antalgic gait. Rpeorts R LE being stiff. THEREX: Tolerated L LE heel slides and [id number] x 10, Gluteal setting x 10 and quadriceps setting x 10 after the afternoon session. ASSESSMENT: Patient continues to require extensive encouragement during mobility ADL performance. Remains significantly fearful of falling but is now able to tolerate transfers with contact guard assist of one and stand by assist of another. Pain appears to be of less intensity but patient tends to anticipate pain due to high anxiety level. Will benefit from SNF placement to allow progression with transfer and ambulation task performance prior to returning to [facility]. PLAN: Continue to coordinate with nursing staff for pre-medication for pain. Progress transefr task and exercises as tolerated. Treatment time: Session 1??[id number] x 39 minutes beginning at 9:59 AM. Session 2??[id number] x 15 minutes, [id number] x 10 minutes, beginning at 13:48 p.m.
--- NOTE | 2020-08-28 15:17 | PGE_ITS ---
Date of Service Date of service: 08/28/20 Time of Service: 15:17 Assessment and Plan Assessment and plan (1) UTI (urinary tract infection): Status: Acute Assessment and plan: Culture growing klebsiella pneumoniae. Continue Keflex. Qualifiers: Urinary tract infection type: acute cystitis Hematuria presence: without hematuria Qualified Code(s): N30.00 - Acute cystitis without hematuria (2) Fracture of ramus of right pubis: Status: Acute Assessment and plan: She was evaluated by orthopedics and deemed nonsurgical, WBAT. Fentanyl patch increased to 25 mcg yesterday, pain control improved. She is working with PT, using walker. She is being considered for rehab at [facility] rehab. Continue PT and pain control. (3) Constipation: Status: Acute Assessment and plan: In the setting of limited mobility and opioids for pain control. She had a constipated BM today. Continue bowel regimen. She had a suppository today. Add mag citrate. (4) Diabetes mellitus type 2 in obese: Status: Acute Assessment and plan: Blood sugars have been controlled on current regimen with increased lantus. Continue diabetic diet and aspart per sliding scale ac/hs continue home medication, trajenta not available A1C 7.4 in jul 2020 (5) DVT prophylaxis: Status: Acute Assessment and plan: enoxaparin daily (6) Discharge planning issues: Status: Acute Assessment and plan: She is a FULL code. She has not been open to discussing CODE status during this admission. She is likely to transfer to [facility] tomorrow. This case was discussed with Dr Irizarry, who is in agreement. Subjective Subjective Interval history since last seen: Wendy was seen sitting up in the recliner today after getting up with PT. She had a BM on the commode. She is pleasant today. She reports feeling uncomfortable all over. Her fentanyl patch dose was increased to 25 mcg last night. She is eating and drinking and tolerating her diet. She denies urinary symptoms, she is on Keflex for UTI. She is being considered for rehab at [facility]. Exam Narrative Exam Narrative: General: Elderly female, sitting up in the recliner. Awake and alert. Answers questions appropriately. HEENT: Atraumatic, skin is pale, mucous membranes dry. Neck: supple. Cardiovascular: heart sounds regular, 3/6 murmur noted at RSB. Respiratory: respirations appear even and unlabored, lungs sounds are clear throughout. GI: +BS, soft, nontender on palpation, nondistended, Extremities: BLEs are without edema. Objective Last Vital Signs Temp 36.2 C L 08/28/20 08:04 Pulse 77 08/28/20 08:04 Resp 18 08/28/20 08:04 BP 149/76 H 08/28/20 08:04 Pulse Ox 97 08/28/20 08:04
[2020-08-28 15:25] VITALS: BP 165/81; PULSE 80; RESP 17; TEMP 36.5; O2SAT 97
[2020-08-28] MEDS: Enoxaparin 40 MG/0.4 ML SYR SC (15:26)
[2020-08-28] MEDS: fentaNYL 25 MCG PATCH TD (15:27)
[2020-08-28] MEDS: Magnesium Citrate 300 ML BTL 150 ML PO (15:27)
[2020-08-28] MEDS: hydrOXYzine HCL 25 MG TAB PO (17:04)
--- NOTE | 2020-08-28 17:06 | PDOC.CMPRO ---
- If Service Date Differs Date of service: 08/28/20 Time of Service: 17:06 Care Management Progress Note S/O: Wendy was lying in bed when JANES met with her. JANES coordinated a zoom meeting with GABY Gomes, who requested to meet Wendy prior to offering her a bed for rehab. Wendy was pleasant and stated that it would be wonderful to have more rehab, and that she was agreeable to going to [facility] when her doctor advises it. Per MD, she is medically cleared, and will transition to rehab tomorrow. JANES will coordinate her discharge with staff. JANES will continue to follow. A: Wendy is an 84 year old female admitted to [facility] on 08/23/20 with a pelvic fracture. P: JANES sent a referral for short term rehab to [facility] for consideration. She received a bed offer today, and will transition to rehab once medically cleared, likely tomorrow. She will return to the [facility] once she has completed her rehab goals. She will transport via facility w/c van. JANES will continue to follow.
[2020-08-28] MEDS: Insulin Glargine 300 UNITS/3 ML PEN 18 UNITS SC (21:49)
[2020-08-28] MEDS: Lisinopril 20 MG TAB 40 MG PO (21:49)
[2020-08-28 23:30] VITALS: BP 162/78; PULSE 74; RESP 18; TEMP 36.5; O2SAT 98
[2020-08-29 07:14] VITALS: BP 127/81; PULSE 73; RESP 18; TEMP 35.9; O2SAT 98
[2020-08-29] MEDS: Docusate Sodium 100 MG CAP PO (08:16)
[2020-08-29] MEDS: Cephalexin 500 MG CAP PO (08:16)
[2020-08-29] MEDS: GLIMEPIRIDE 4 MG TAB PO (08:16)
[2020-08-29] MEDS: Pantoprazole 40 MG TABCR PO (08:17)
[2020-08-29] MEDS: Sertraline 50 MG TAB 100 MG PO (08:17)
[2020-08-29] MEDS: Senna TAB 1 TAB PO (08:17)
[2020-08-29] MEDS: metFORMIN 500 MG TAB PO (08:17)
[2020-08-29] MEDS: Aspirin E.C. 81 MG TABEC PO (08:18)
[2020-08-29] MEDS: Acetaminophen 325 MG TAB 650 MG PO (08:18)
[2020-08-29] MEDS: Magnesium Oxide 400 MG TAB PO (08:18)
[2020-08-29] MEDS: Polyethylene Glycol 3350 17 GM PACKET PO (08:18)
[2020-08-29] MEDS: Spironolactone 25 MG TAB 12.5 MG PO (08:19)
--- NOTE | 2020-08-29 09:31 | DSE_ITS ---
Date of service: 08/29/20 Time of Service: 09:31 DS: Diagnosis Discharge Diagnosis (1) UTI (urinary tract infection): Status: Acute (2) Fracture of ramus of right pubis: Status: Acute (3) Constipation: Status: Acute (4) Diabetes mellitus type 2 in obese: Status: Acute Discharge Plan Disposition Patient Disposition: SKILLED NSG. FAC.(LEVEL 1) Condition: Stable Discharge Details Reason For Visit: PELVIC FRACTURE Admit Date/Time: 08/23/20 12:31 Admit Provider: Juan Bro Attending Provider: Juan Bro Primary Care Provider: [facility] Course Hospital Course: This is a patient who returned to the ED 2 days after a mechanical fall on 08/20/20 where she was evaluated in ED and xrays demonstrated a nondisplaced fractures of right superior and inferior pubic rami. He was seen by Dr. Mccauley and was cleared for ambulation with walker. She was discharged back but failed to manage pain and be safely re-ambulated so she was sent back to the ED and was admitted to hospital for acute pain management and PT consultation. She was noted to have a UTI, growing klebsiella pneum treated with ceftriaxone then downstepped to keflex based on sensitivities. Her pain medications were titrated and fentanyl patch was started with moderate relief. She was still resistive to rehabilitation but making some progress. She is not safe for discharge back to [facility] and will discharged [facility] for further rehabiliation. Discharge discussed with Dr Irizarry. Home Meds and New Rx's Prescriptions: New sennosides [Senokot] 8.6 mg Tablet 1 tab PO BID Qty: 0 RF: 0 polyethylene glycol 3350 17 gram Powder In Packet 17 g PO DAILY Qty: 0 RF: 0 sertraline 50 mg Tablet 100 mg PO DAILY Qty: 30 RF: 0 docusate sodium [Colace] 100 mg Capsule 100 mg PO BID Qty: 0 RF: 0 fentanyl [Duragesic] 25 mcg/hr Patch 72 Hour 25 mcg transdermal Q72H Qty: 2 RF: 0 cephalexin 500 mg Capsule 500 mg PO TID Qty: 12 RF: 0 Continued Tradjenta 5 mg tablet 5 mg PO QAM RF: 0 lisinopril 40 MG tablet 40 mg PO HS RF: 0 polyethylene glycol 3350 17 GM powder in packet 17 gm PO DAILY PRN PRN (Reason: Constipation) RF: 0 magnesium oxide 400 MG tablet 400 mg PO BID RF: 0 diazepam 2 MG tablet 2 mg PO TID PRN PRNQty: 12 RF: 0 pantoprazole 40 MG tablet,delayed release (DR/EC) 40 mg PO DAILY RF: 0 ibuprofen 400 MG tablet 400 - 800 mg PO Q6H PRN PRNRF: 0 acetaminophen [Tylenol] 325 MG tablet 650 tab PO Q6H PRN PRNQty: 0 RF: 0 aspirin [Lo-Dose Aspirin] 81 MG tablet,delayed release (DR/EC) 81 mg PO BID Qty: 0 RF: 0 oxycodone 5 mg tablet 5 mg PO Q6H RF: 0 spironolactone 25 MG tablet 12.5 mg PO DAILY RF: 0 glimepiride [Amaryl] 4 MG tablet 4 mg PO DAILY RF: 0 metformin 500 MG tablet 500 mg PO BID RF: 0 Lantus Solostar U-100 Insulin 100 unit/mL (3 mL) insulin pen 15 unit SUBCUT HS RF: 0 Discharge Instructions Instructions: Pelvic Fracture (DC), Urinary Tract Infection in Older Adults (DC) Additional Instructions: pain management bowel management routine rehabilitation Stand Alone Forms: Nursing Discharge Form Referrals: Criss Clay [Primary Care Provider] - 09/04/20 10:40 am ([employer] appt) Activity:: Activity as Tolerated Equipment/Supplies:: Walker Diet:: Carb Counting Discharge Orders Discharge Orders: Discharge Order (Routine); Ordered 08/29/20 Ordered By: Janice Castillo DS: Summary Time Spent with Patient providing and/or coordinating discharge services: Greater than 30 minutes Status at Discharge Functional status at discharge: uses cane/walker Overall status at discharge: patient is progressing back to baseline Mental Status: mental status grossly normal Speech and Movement: speech and movement normal Mood: congruent mood Affect: irritable affect Exam Const General: uncooperative, no acute distress and frail appearing (elderly female, older appearing) Nutritional Appearance: average body habitus Orientation: alert and awake [facility] Head: normal to inspection, normocephalic and atraumatic Resp Effort & Inspection: normal respiratory effort Cardio Rate: regular rate Rhythm: regular rhythm GI Inspection: normal to inspection Palpation: soft and nontender Auscultation: normal bowel sounds Skin General skin exam: no rashes or lesions noted Neuro General: patient alert and patient awake Extrem General: no pedal edema Psych Mental Status: mental status grossly normal Speech and Movement: speech and movement normal Mood: congruent mood Affect: irritable affect DS: Data Vitals/I&O Vitals and I&O: Vital Signs Temperature 35.9 C L 08/29/20 07:14 Temperature Source Tympanic 08/29/20 07:14 Pulse 73 08/29/20 07:14 Pulse Rhythm Regular 08/29/20 03:27 Respiratory Rate 18 08/29/20 07:14 Respiratory Effort Non-Labored 08/29/20 03:27 Respiratory Depth Normal 08/29/20 03:27 Respiratory Pattern Normal 08/29/20 03:27 Blood Pressure 127/81 08/29/20 07:14 Blood Pressure Mean 82 08/23/20 12:52 Blood Pressure Position Supine 08/23/20 11:37 Pulse Oximetry 98 08/29/20 07:14 Oxygen Delivery Method Room Air 08/29/20 07:14 Oxygen Flow Rate 0 08/29/20 07:14 Pain Level 5 08/29/20 08:18 Comment 08/28/20 15:25 Intake & Output 08/28/20 08/28/20 08/29/20 11:59 23:59 11:59 Intake Total 240 / 480 240 / 480 240 / 240 Output Total 50 / 50 Balance 240 / 480 240 / 480 190 / 190 Intake: Oral 240 / 480 240 / 480 240 / 240 Output: Urine 50 / 50 Other: Urine Color Pale Straw Yellow Urine Appearance Clear Clear Clear Urine Odor None Strong Stool Occult Blood Negative Stool Size Small Moderate Stool Characteristics Hard Formed Hard Brown Voiding Methods Bedside Commode Bedside Commode Data Completed and Pending Labs on day of discharge: Labs from last 24 hours 08/29/20 09:28 COVID-19 Source Pending SARS-CoV-2 (PCR) Pending [facility] Medical History (Updated 08/28/20 @ 15:31 by Jolly Camargo NP) Anxiety about health Chronic upset stomach Complete heart block Diabetes mellitus Hypertension Irritable behavior Palliative care encounter POLST (Physician Orders for Life-Sustaining Treatment) advance directives last done 2015 has refused to update x 2020 Surgical History OPEN REDUCTION AND INTERNAL FIXATION WITH COMPRESSION HIP SCREW (08/19/17) DR. GARCIA Social History Smoking/Tobacco Use Status: Former Tobacco Use Smoking risk assessment performed?: Yes Alcohol Intake: never Drug use: Never
[2020-08-29 10:01] LABS: Source Nasal/Nares
[2020-08-29 10:56] LABS: COVID-19 PCR Negative (Negative)
[2020-08-29] MEDS: Insulin Aspart 300 UNITS/3 ML PEN SC (11:50)
--- NOTE | 2020-08-29 12:08 | PDOC.CMDIS ---
- If Service Date Differs Date of service: 08/29/20 Time of Service: 12:09 LACE Index Scoring Tool - Questions: Length of Stay (in days): 4 - 6 Acuity (Admit via E.D.?): Yes Comorbidities: Diabetes w/o Complication E.D. Visits: 2 - Answers: Total Score: 10 Risk of Readmission: High Risk Care Management Discharge Reason for Hospitalization: Pelvic Fracture Discharge Plan: Wendy will go to [facility] for short term rehab prior to returning to the [facility], where she resides. She will transport via facility w/c van. She will follow up with her PCP and discharge plan of care. Patient/Family Education Needs: Review discharge instructions regarding activity levels and medications, discussion of self care needs and goals of care. Services Needed at Discharge: [facility] Facility ([facility]), Transportation (facility w/c van)
--- NOTE | 2020-08-29 13:34 | PT.INTREAT ---
Date of service: 08/29/20 Time of Service: 12:55 PT Notes Visit Reasons: PELVIC FRACTURE Inpatient Physical Therapy Treatment Note [facility] Date: 08/29/2020 PRECAUTIONS: Fall, WBAT R SUBJECTIVE: Wendy reports I can't do anything today. My legs won't hold me up. OBJECTIVE: She appears teary and anxious with all movement. PAIN: No c/o pain BED MOBILITY/TRANSFERS Sit-stand: Min A x2 with STEDY Stand-sit: CGA x2 with STEDY Transferred chair-wheelchair with STEDY and SBA. Static standing x1 minute. GAIT: Refused ASSESSMENT: Patient continues to appear limited by fear of falling and pain. She would benefit from continued transfer training and global strengthening for improved activity tolerance. PLAN: Continue with PT services at [facility] upon discharge. TREATMENT CODE/TIME: 10 minutes; 82749 (12:55)
--- NOTE | 2020-08-29 17:01 | PT.INDS ---
Date of service: 08/29/20 Time of Service: 17:01 PT Notes Visit Reasons: PELVIC FRACTURE Physical Therapy Inpatient Discharge Summary Date: 08/29/2020 Dates of service: 08/24/2020 through 08/29/2020 This is a clinical summary of care provided on the duration of dates listed above. No charge was made in the completion of this documentation. Referring Doctor: Janice Castillo NP PT Orders: PT CONSULT: Limited ability Precautions: Fall. Standard. WBAT on R LE. Hard of hearing. Patient Profile/Admitting Diagnosis: Wendy is an 84-year-old female with R non-displaced superior and inferior pubic rami fracture sustained from a mechanical fall. Per orthopedic surgeon, fracture is non-operable and ordered WBAT on R LE. PMHX: Medical History (Updated 08/23/20 @ 17:04 by Janice Castillo NP) Complete heart block Diabetes mellitus Hypertension Surgical History (Updated 09/02/17 @ 08:26 by Vaishali Collins) OPEN REDUCTION AND INTERNAL FIXATION WITH COMPRESSION HIP SCREW (08/19/17) DR. GARCIA Social History/Home Situation: Unable to provide information on where she lives at this time. Equipment Owned/DME: Unable to provide information on where she lives at this time. Subjective: NT. See most recent [employer] notes. Objective: General Observation: NT. See most recent [employer] notes. Mental Status: NT. See most recent [employer] notes. Pain: NT. See most recent [employer] notes. ROM: Right Upper Extremity: Grossly WFL Left Upper Extremity: Grossly WFL Right Lower Extremity: Only able to slide R LE with manual assist Left Lower Extremity: Grossly WFL Strength: Right Upper Extremity: Grossly 4/5 Left Upper Extremity: Grossly 4/5 Right Lower Extremity: NT but was able to slide R LE with manual assist Left Lower Extremity: Grossly 3/5 Sensation: Intact as to pain and pressure on bilateral lower extremities. Bed Mobility/Transfers: Supine to sit moderate assist of 2 with HOB at 45 degrees Sit to supine moderate assist of 2 Sit to stand refused profusely due to pain and anxiety Stand to sit refused profusely due to pain and anxiety Bed to chair refused profusely due to pain and anxiety Chair to bed refused profusely due to pain and anxiety Gait: UP to 4-5 steps depending on pain level and anxiety. Needs FWW and assist of 2 for safety. Balance: Static Sitting: Fair Dynamic Sitting: Poor Static Standing: Unable Dynamic Standing: Unable Special Tests: Mobility Limitations Standardized Measure [facility] AM-PAC 6 clicks Basic Mobility Inpatient Short Form: Raw Score: 6 CMS Score: 100% deficit Assessment: Pain level and high anxiety continue to prevent patient from participating in mobility assessment. Will update nurse and hospitalist to mitigate issue. Needs coordination with nursing staff to premedicate patient for pain to maximize functional performance during sessions. Patient will benefit from long-term facility placement for continued skilled physical therapy services in order to progress mobility level, strength, and balance in preparation for a safe discharge to home. Patient continues to present with clinical signs and symptoms consistent with current/admitting diagnoses that have resulted to mobility limitations, gait instability, generalized weakness, and impairment of motor control as demonstrated by the following impairment level findings: 1. Decreased strength to B LE major muscle groups 2. Impaired sitting/standing balance 3. Impaired activity tolerance 4. Limitation of joint range of motion in right LE 5. pain in R hip and thigh 6. Increased anxiety due to pain level Impairments are continuing to contribute to the following functional limitations: 1. Dependent bed mobility skills 2. Increased dependence with transfers 3. Inability to safely ambulate 4. Increase completion time for mobility ADL performance 5. Increased fall risk 6. Inability to negotiate steps Goals: Goals X1 week 1. Supine-Sit contact-guard assist NOT MET 2. Sit-Supine contact-guard assist NOT MET 3. Sit-Stand contact-guard assist NOT MET 4. Stand-Sit contact-guard assist NOT MET 5. Bed-Chair minimal assist NOT MET 6. Chair-Bed minimal assist NOT MET 7. Minimal assist gait on level surface with use of least restrictive device for at least 30 feet without report of pain nor dyspnea NOT MET 8. Fair static and dynamic standing balance/tolerance NOT MET DISCHARGE RECOMMENDATIONS: Patient will benefit from long-term facility placement for continued skilled physical therapy services in order to progress mobility level, strength, and balance in preparation for a safe discharge to home. TREATMENT CODE/TIME: [place] Thank you for the opportunity to participate in the care of this patient. Vida Calixto PT, DPT, CLT [facility] [place], [place]
== END 2020-08-29 13:13 | disposition skilled nursing facility (03) | DRG 690 ==
LOC: ER 13:31 → MS 14:30
PROVIDERS: Nurse Practitioner; Nurse Practitioner Acute Care; Admitting Provider Internal Medicine; Emergency Provider Physician Assistant; PCP Nurse Practitioner Family; Visit Provider Internal Medicine
DX: N30.00 Acute cystitis without hematuria (principal); I44.2 Atrioventricular block, complete; G89.11 Acute pain due to trauma; M25.551 Pain in right hip; R26.2 Difficulty in walking, not elsewhere classified; I10 Essential (primary) hypertension; E11.9 Type 2 diabetes mellitus without complications; Z87.891 Personal history of nicotine dependence; K30 Functional dyspepsia; F41.9 Anxiety disorder, unspecified; B96.1 Klebsiella pneumoniae [K. pneumoniae] as the cause of diseases classified elsewhere; S32.591D Other specified fracture of right pubis, subsequent encounter for fracture with routine healing
CPT/HCPCS: 36415; 80048; 80053; 85027; 87077; 87635; 96361; 96374; 97110; 97163; 97530; 99223; 99232; 99233; 99239; 99252; 99285; J1650; 81003; 81015; 85025; 87086; 87186; 99284; J0696

== ENCOUNTER 2021-06-25 23:19 | Outpatient (REF) | payer MEDICARE, MEDICAID, SELFPAY ==
[2021-06-25 23:48] LABS: Bilirubin Negative (Negative); Blood Trace-lysed (Negative); Clarity Cloudy (Clear); Glucose 500 mg/dL (Negative); Ketones Negative (Negative); Leukocyte Esterase Trace (Negative); Nitrite Positive (Negative); Specific Gravity >= 1.030 (1.005-1.025); pH 5.5 (5-8)
[2021-06-25 23:57] LABS: WBC 20-50 HPF (0-5)
[2021-06-25 23:58] LABS: Bacteria Packed HPF (Negative); C & S Indicated? C&S Done As Ordered
== END 2021-06-25 23:20 | disposition home or self-care (01) ==
LOC: LBN 23:19
PROVIDERS: PCP Nurse Practitioner Family; Visit Provider Family Medicine
DX: E11.319 Type 2 diabetes mellitus with unspecified diabetic retinopathy without macular edema (principal); F01.51 Vascular dementia, unspecified severity, with behavioral disturbance; F33.1 Major depressive disorder, recurrent, moderate
CPT/HCPCS: 87077; 81003; 81015; 87086; 87186

== ENCOUNTER 2021-08-21 16:20 | Outpatient (REF) | payer MEDICARE, MEDICAID, SELFPAY ==
[2021-08-23 07:47] LABS: COVID-19 RT-PCR Result Positive
== END 2021-08-21 16:21 | disposition home or self-care (01) ==
LOC: LBN 16:20
PROVIDERS: PCP Nurse Practitioner Family; Visit Provider Family Medicine
DX: Z20.822 Contact with and (suspected) exposure to COVID-19 (principal)
CPT/HCPCS: U0003; U0005

== ENCOUNTER 2021-09-21 07:55 | Outpatient (REF) | payer MEDICARE, MEDICAID, SELFPAY ==
[2021-09-21 08:16] LABS: Abs Immature Grans 0.03 10^3/uL (0.0-0.06); Absolute Basophil Count 0.05 10^3/uL (0.0-0.2); Absolute Eosinophil Count 0.22 10^3/uL (0.0-0.7); Absolute Lymphocyte Count 1.32 10^3/uL (1.2-3.4); Absolute Monocyte Count 0.54 10^3/uL (0.1-0.8); Absolute Neutrophil Count 4.51 10^3/uL (1.2-6.7); Basophils % 0.7; Eosinophils % 3.3; HCT 34.2 % (36.0-46.0); HGB 10.8 g/dL (11.2-15.7); Immature Grans % 0.4; Lymphocytes % 19.8; MCH 27.8 pg (27.0-33.0); MCHC 31.6 % (32.0-36.0); MCV 87.9 fL (80-95); MPV 9.5 fL (8.0-11.0); Monocytes % 8.1; Neutrophils % 67.7; Nucleated RBC 0 %; Platelet Count 262 10^3/uL (130-400); RBC 3.89 10^6/uL (3.93-5.22); RDW 14.6 % (11.7-14.6); RDW-SD 47.2 fL; WBC 6.67 10^3/uL (4.4-10.8)
[2021-09-21 08:24] LABS: Anion Gap 7.8 mmol/L (3-11); BUN 17 mg/dL (7-18); CO2 26.2 mmol/L (21.0-32.0); CREATININE 0.5 mg/dL (0.55-1.02); Calcium 9.3 mg/dL (8.5-10.1); Chloride 103 mmol/L (98-107); Glucose 257 mg/dL (74-106); Sodium 137 mmol/L (136-145)
== END 2021-09-21 07:56 | disposition home or self-care (01) ==
LOC: LBN 07:55
PROVIDERS: PCP Nurse Practitioner Family; Visit Provider Nurse Practitioner Family
DX: I10 Essential (primary) hypertension (principal); E11.9 Type 2 diabetes mellitus without complications; R54 Age-related physical debility
CPT/HCPCS: 80048; 85025

== ENCOUNTER 2021-09-24 18:52 | Outpatient (REF) | payer MEDICARE, MEDICAID, SELFPAY ==
[2021-09-24 11:58] LABS: Hemoglobin A1C 7.6 % (<5.7)
== END 2021-09-24 18:53 | disposition home or self-care (01) ==
LOC: LBN 18:52
PROVIDERS: PCP Nurse Practitioner Family; Visit Provider Nurse Practitioner Family
DX: E11.319 Type 2 diabetes mellitus with unspecified diabetic retinopathy without macular edema (principal)
CPT/HCPCS: 83036

== ENCOUNTER → 2022-01-02 09:37 | Outpatient (BNVA) | payer MEDICARE, MEDICAID, SELFPAY | PROVIDERS: PCP Nurse Practitioner Family; Referring Provider Nurse Practitioner Family; Visit Provider Physician Assistant | DX: Z95.0 Presence of cardiac pacemaker (principal); I44.2 Atrioventricular block, complete | CPT/HCPCS: 93280 ==

== ENCOUNTER 2022-03-25 15:58 | Outpatient (REF) | payer MEDICARE, MEDICAID, SELFPAY ==
[2022-03-25 18:15] LABS: Hemoglobin A1C 8.3 % (<5.7)
== END 2022-03-25 15:59 | disposition home or self-care (01) ==
LOC: LBN 15:58
PROVIDERS: PCP Nurse Practitioner Family; Visit Provider Family Medicine
DX: E11.21 Type 2 diabetes mellitus with diabetic nephropathy (principal)
CPT/HCPCS: 83036